=== PATIENT | female | born 1960 | race Caucasian/White ===

== ENCOUNTER 2023-06-21 06:17 | Emergency (ER) | payer BC, SELFPAY ==
[2023-06-21 06:26] VITALS: BP 136/94
[2023-06-21 07:03] LABS: % Basophils 0.8 % (0-2); % Eosinophils 1.3 % (0-6); % Immature Granulocytes 0.2 % (0-0.5); % Lymphocytes 29.8 % (20.5-51.1); % Monocytes 10.9 % (1.7-9.3); Absolute Basophils 0.1 10^3/uL (0-0.2); Absolute Eosinophils 0.1 10^3/uL (0-0.7); Absolute Lymphocytes 1.9 10^3/uL (1.2-3.4); Absolute Monocytes 0.7 10^3/uL (0.1-0.6); Absolute Neutrophils 3.6 10^3/uL (1.4-6.5); Hematocrit 42.6 % (37.0-47.0); Hemoglobin 14.4 g/dL (12.0-16.0); Mean Corp Hgb Conc. 33.8 g/dL (33.0-37.0); Mean Corpuscular Hgb 28.7 pg (27.0-31.0); Mean Corpuscular Volume 84.9 fL (81.0-99.0); Mean Platelet Volume 9.2 fL (7.4-10.4); Nucleated Red Blood Cells % 0 %; Platelet Count 294 10^3/uL (130-400); Red Blood Cell Count 5.02 10^6/uL (4.20-5.40); Red Cell Dist. Width 13.4 % (11.5-14.5); White Blood Cell Count 6.2 10^3/uL (4.8-10.8)
[2023-06-21 07:17] LABS: ALT (SGPT) 19 U/L (0-35); AST (SGOT) 19 U/L (14-36); Alkaline Phosphatase 88 U/L (38-126); Blood Urea Nitrogen 24 mg/dl (7-17); Calcium 9.3 mg/dl (8.4-10.2); Carbon Dioxide 27 mmol/L (22-30); Chloride 104 mmol/L (98-107); Glucose 101 mg/dl (70-99); Potassium 4.4 mmol/L (3.5-5.1); Sodium 138 mmol/L (135-145); Total Bilirubin 0.6 mg/dl (0.2-1.3); Total Protein 6.7 g/dl (6.3-8.2); eGFR > 60.00
[2023-06-21 07:27] LABS: Troponin I < 0.012 ng/ml
[2023-06-21 07:47] LABS: TSH Reflex To Free T4 4.49 uIU/ml (0.47-4.68)
--- NOTE | 2023-06-21 07:56 | ED.GENMED ---
History of Present Illness
General
Chief Complaint: Heart Rate Problem
Source: patient
Exam Limitations: none
Time Seen by Provider: 06/21/23 07:55
Nursing documentation reviewed up to this point in time: agreed with
Travel History
Have you had any contact with someone who has COVID-19?: No
Do you have any symptoms of coronavirus? Fever > 100 degrees, chills, cough, shortness of breath, sore throat, loss of taste or smell, muscle aches, or headache?: No
History of Present Illness
History of Present Illness:
63-year-old female with history of SVT, hypothyroid presents stating she awakened at 5:30 a.m. with 'whizzing feeling in my head,' put her pulse oximeter on and her heart rate was 145-150 for about 10 minutes with palpitations and 'whiz in my head.'
Denies CP, SOB, n/v. Called her son to bring her here, on arrival her pulse ox read HR 108-110 and has had no further episodes.
Had SVT September 2022, f/u with cardiology Dr. Wiseman and reports had unremarkable echo, ekg, Holter.
No recent illness or exposures. No recent travel
Past History
Past History
ED Past Medical History: Hypothyroidism and Other (COVID infection, SVT September 2022)
ED Past Surgical History: Orthopedic
Social History
Tobacco: Non-smoker
Alcohol: Occasional
Personal:
Living: with family
Employment: Employed
Review of Systems
Review of Systems
Allergies reviewed?: Yes
All Other Systems: ROS reviewed and negative except as documented in HPI and ROS
Constitutional: Denies fever or fatigue
Respiratory: Denies trouble breathing
Cardiac: Reports palpitations; Denies chest pain, diaphoresis or syncope
ABD/GI: Denies abdominal pain, nausea or vomiting
: Denies dysuria or difficulty voiding
Musculoskeletal: Reports no symptoms
Skin: Reports no symptoms
Neurological: Reports no symptoms
Phy Exam
Physical Exam
Physical Exam:
GENERAL: No acute distress. A&Ox3.
CONSTITUTIONAL: Afebrile.
EYES: clear, conjunctivae normal
ENMT: moist mucus membranes, Pharynx nl
RESPIRATORY: Regular respirations, nonlabored, lungs clear.
CARDIOVASCULAR: Regular rate and rhythm, no murmurs, no rubs. HR
GI: Soft, nontender, normal BS
MUSCULOSKELETAL: Moves with ease. Well perfused.
SKIN: Warm, dry, pink
PSYCH: Normal mood and affect. Well kept, interactive and appropriate
NEUROLOGIC: Awake, alert and oriented. No focal neurological deficits
Course
Orders/Labs/Results
Orders:
Orders
06/21/23 06:28
Electrocardiogram (*1) Urgent
Reason for Study: Palpitations
06/21/23 06:29
EKG- Treatment ONCE
06/21/23 06:45
Complete Blood Count/With Diff Urgent
Comprehensive Metabolic Panel Urgent
TSH Reflex To Free T4 Urgent
Troponin I Urgent
06/21/23 07:56
0.9% Sodium Chloride 1000 ml [Nss] 1,000 ml IV BOLUS
06/21/23 08:[address] Non Medication Order As Directed
Physician Order: monitor
Above order entered?: Yes
Abnormal Lab Results
06/21/23
06:45
Absolute Monos (auto) 0.7 H 10^3/uL
(0.1-0.6)
Monocytes % 10.9 H %
(1.7-9.3)
BUN 24 H mg/dl
(7-17)
Glucose 101 H mg/dl
(70-99)
06/21/23 06:45
06/21/23 06:45
Vital Signs
Initial and Last Documented VS:
Initial Vital Signs
Temp Pulse Resp BP Pulse Ox
98.0 F 110 16 136/94 97
06/21/23 06:26 06/21/23 06:26 06/21/23 06:26 06/21/23 06:26 06/21/23 06:26
Last Documented Vital Signs
Temp Pulse Resp BP Pulse Ox
98.0 F 86 20 121/77 96
06/21/23 06:26 06/21/23 10:00 06/21/23 10:00 06/21/23 10:00 06/21/23 10:00
MDM/Problems Addressed
Differential Diagnosis Includes:
SVT, palpitations
MDM/Problems Addressed:
63-year-old female with history of SVT, hypothyroid presents stating she awakened at 5:30 a.m. with 'whizzing feeling in my head,' put her pulse oximeter on and her heart rate was 145-150 for about 10 minutes with palpitations and 'whiz in my head.'
Denies CP, SOB, n/v. Called her son to bring her here, on arrival her pulse ox read HR 108-110 and has had no further episodes.
Had SVT September 2022, f/u with cardiology Dr. Wiseman and reports had unremarkable echo, ekg, Holter.
No recent illness or exposures. No recent travel
EKG: NSR
8:45 AM
CBC normal
CMP unremarkable save for BUN of 24 consistent with dehydration, IV fluids ordered
Troponin normal
TSH within normal limits
Monitoring during entire stay, no SVT or significant tachycardia
Consulted Cardiology Dr. Wiseman who agrees with Toprol and keep scheduled f/u appt in June
Pt comfortable with this plan
*EKG
EKG Intrepretation Date: 06/21/23
Interpretation: normal
Rate: normal
Rhythm: sinus
[place]: normal axis
Interval: normal interval
QRS Pattern: normal QRS
Ischemia: no ischemia
*Critical Care Note
Total Time (30-74mins, 75-104mins- exclusive of procedures): Not Applicable
ED Attending Note
-
Portions of this chart may have been created with voice recognition software.� Occasional wrong word or��sound alike� substitutions may have occurred due to the inherent limitations of voice recognition software.
Discharge Plan
Departure
Patient Disposition: Home (Routine Discharge)
Date of Disposition: 06/21/23
Time of Disposition: 09:55
Patient with high blood pressure during this ER visit?: Yes
Condition: Good
Discharge Problem:
Rapid heart rate
Instructions: Supraventricular tachycardia (SVT), BLOOD PRESSURE
Prescriptions:
New
metoprolol succinate [Toprol XL] 25 mg tablet extended release 24 hr
25 mg PO DAILY Qty: 30 0RF
No Action
levothyroxine [Levoxyl] 100 MCG tablet
100 mcg PO Daily
Referrals:
Juanpablo Mathis MD [Family Provider] -
Reno Wiseman MD [Active] - Keep scheduled appt
Activity Restrictions/Additional Instructions:
As we discussed, I sent a prescription to your pharmacy for the Toprol.
Keep appointment scheduled for Dr. Wiseman in June or July.
Try the Valsalva maneuvers we discussed if you have a rapid heart rate again.
If the heart rate does not improve within 15 minutes, if it is associated with feeling faint, chest pain, nausea/vomiting or feeling sicker in any way, return here immediately.
Interventions
Interventions:
*Risk Screen - Suicide Last Done: 06/21/23 06:26
*General Assessment Last Done: 06/21/23 08:57
*Neglect/Abuse Screening Last Done: 06/21/23 06:26
ED- Fall Risk Assessment Last Done: 06/21/23 08:57
*ED COVID-19 Vaccine History Last Done: 06/21/23 06:26
*Nursing Disposition Last Done: 06/21/23 10:21
ED- Cardiac Assessment Last Done: 06/21/23 08:57
ED- Pulmonary Assessment Last Done: 06/21/23 08:57
Discharge Date and Time
Discharge Date/Time: 06/21/23 10:22
Print Language: PASHTO
[2023-06-21 08:57] VITALS: BMI 49.7
[2023-06-21 08:58] VITALS: BP 142/98
[2023-06-21 09:00] VITALS: BP 140/94
[2023-06-21] MEDS: NSS 1000 IV (09:11)
[2023-06-21 10:00] VITALS: BP 121/77
== END 2023-06-21 10:22 | disposition home or self-care (01) ==
LOC: EMR 06:17
PROVIDERS: Student in an Organized Health Care Education/Training Program; EMERGENCY PHYSICIAN Emergency Medicine; FAMILY PHYSICIAN Internal Medicine Geriatric Medicine
DX: I47.10 Supraventricular tachycardia, unspecified (principal); R03.0 Elevated blood-pressure reading, without diagnosis of hypertension; E86.0 Dehydration; E03.9 Hypothyroidism, unspecified; M19.90 Unspecified osteoarthritis, unspecified site; Z86.16 Personal history of COVID-19
CPT/HCPCS: 99284; 96360; 80053; 84443; 84484; 85025; 93005

== ENCOUNTER → 2023-06-28 16:10 | Outpatient (REF) | payer BC, SELFPAY | LOC: WDC 16:10 | PROVIDERS: ATTENDING PHYSICIAN Internal Medicine Geriatric Medicine | DX: Z12.31 Encounter for screening mammogram for malignant neoplasm of breast (principal) | CPT/HCPCS: 77063; 77067 ==

== ENCOUNTER 2024-06-16 23:34 | Emergency (ER) | payer BC, SELFPAY ==
[2024-06-16 23:55] VITALS: BP 180/101
[2024-06-17 00:32] VITALS: BP 138/83
--- NOTE | 2024-06-17 00:41 | ED.GENMED ---
History of Present Illness
General
Chief Complaint: Heart Rate Problem
Source: patient
Exam Limitations: none
Time Seen by Provider: 06/17/24 00:19
History of Present Illness
History of Present Illness:
See MDM
Past History
Past History
ED Past Medical History: Hypothyroidism and Other (COVID infection, SVT September 2022)
ED Past Surgical History: Orthopedic
Social History
Tobacco: Non-smoker
Alcohol: Occasional
Personal:
Living: with family
Employment: Employed
Phy Exam
Physical Exam
Physical Exam:
See MDM
Course
Orders/Labs/Results
Orders:
Orders
06/17/24 00:02
Electrocardiogram (*1) Urgent
Reason for Study: Bradycardia / Tachycardia
EKG- Treatment ONCE
06/17/24 00:38
Complete Blood Count/With Diff Urgent
Comprehensive Metabolic Panel Urgent
Free T4 Urgent
Magnesium Urgent
TSH Reflex To Free T4 Urgent
Troponin I Urgent
Abnormal Lab Results
06/17/24
00:38
WBC 10.9 H 10^3/uL
(4.8-10.8)
Abs Immat Gran (auto) 0.1 H 10^3/uL
(0-0.05)
Absolute Neuts (auto) 7.7 H 10^3/uL
(1.4-6.5)
Absolute Monos (auto) 1.2 H 10^3/uL
(0.1-0.6)
Immature Gran % 1.2 H %
(0-0.5)
Lymphocytes % 15.6 L %
(20.5-51.1)
Monocytes % 11.2 H %
(1.7-9.3)
BUN 28 H mg/dl
(7-17)
Glucose 111 H mg/dl
(70-99)
TSH (Reflex) 6.60 H uIU/ml
(0.47-4.68)
06/17/24 00:38
06/17/24 00:38
Vital Signs
Initial and Last Documented VS:
Initial Vital Signs
Temp Pulse Resp BP Pulse Ox
98.3 F 106 16 180/101 99
06/16/24 23:55 06/16/24 23:55 06/16/24 23:55 06/16/24 23:55 06/16/24 23:55
Last Documented Vital Signs
Temp Pulse Resp BP Pulse Ox
98.3 F 88 24 138/83 93
06/16/24 23:55 06/17/24 01:45 06/17/24 01:45 06/17/24 00:32 06/17/24 01:45
MDM/Problems Addressed
Differential Diagnosis Includes:
HPI and MDM Narrative:
64-year-old female presenting with resolved palpitations and tachycardia. This is an ongoing issue. She has been seen by cardiology in the past and is currently being followed up with Dr. Alexander. They are working on her and further testing to get
to the bottom of her tachycardic episodes. It appears they have at least narrow down that it is sinus tachycardia
Patient noted the symptoms when she was falling asleep. She denies being anxious. She had just taken her metoprolol at 7 PM, few hours before this happened. On arrival, all symptoms appear to have resolved
Physical exam
General: Well appearing and non-toxic
HEENT: protecting airway
Neck: appears supple
CV: No evidence of cyanosis. Regular rate and rhythm
Resp: No accessory muscle use
Abd: Non-distended
Extremities: No deformities. No leg edema
Neuro: alert
Psych: Normal affect
Skin: Intact
Problems Addressed including Acute and Chronic Conditions affecting care:
1. Intermittent tachycardia
Acuity: acute
Prognosis: stable
Details: Patient currently in sinus rhythm. She is being worked up by cardiology and they started metoprolol for symptom control.
Updates
Electrolytes and troponin negative. T4 levels normal. Discussed continuing the workup with cardiology as an outpatient. Patient feels comfortable going
Differential Diagnosis (but not limited to): Inappropriate sinus tachycardia, SVT, A-fib, pheochromocytoma
Testing considered: Chest x-ray
Drug therapy (if applicable): OTC meds, please see d/c instruction regarding Rx drugs
Amount and/or Complexity of Data Reviewed
Clinical info obtained from: Patient
External data reviewed: N/A
Labs I independently reviewed (but not limited to): T4 normal, troponin normal
Radiology: N/A
Pulse Ox: not hypoxic
EKG independently reviewed: Sinus rhythm, normal axis, no STEMI
Livestock Inspector: Sinus rhythm
Critical Care: N/A
Risk of Complication:
Social Determinants of health: Good social support
Discussed with other providers: N/A
Escalation of Care includes Admit/Obs: After being observed in the Emergency Department, pt stable for discharge.
Occasional wrong word or 'sound a like' substitutions may have occurred due to the inherent limitations of voice recognition software. Read the chart carefully and recognize, using context, where substitutions have occurred.
*Critical Care Note
Total Time (30-74mins, 75-104mins- exclusive of procedures): Not Applicable
ED Attending Note
-
Portions of this chart may have been created with voice recognition software.� Occasional wrong word or��sound alike� substitutions may have occurred due to the inherent limitations of voice recognition software.
Discharge Plan
Departure
Patient Disposition: Home (Routine Discharge)
Date of Disposition: 06/17/24
Time of Disposition: 02:26
Patient with high blood pressure during this ER visit?: No
Discharge Problem:
Heart palpitations
Instructions: Palpitations (DC)
Prescriptions:
No Action
levothyroxine [Levoxyl] 100 MCG tablet
100 mcg PO Daily
metoprolol succinate [Toprol XL] 25 mg tablet extended release 24 hr
25 mg PO DAILY Qty: 30 0RF
Referrals:
Juanpablo Mathis MD [Family Provider] -
Activity Restrictions/Additional Instructions:
Please return for any worsening symptoms.
You may return at any time if you have further concerns.
Please follow up with your doctor at the first available appointment, preferably this week. As we discussed, your workup has been negative. Please talk to your doctor about alternative rare causes of tachycardia such as pheochromocytoma.
If you have the sensation of a fast heart rate again, you may benefit from a dose of Benadryl. If heart rate is still fast, I would take a second dose of metoprolol. If symptoms still persist, I would recommend returning to the emergency
department.
Thank you for choosing [facility].
Interventions
Interventions:
*Risk Screen - Suicide Last Done: 06/16/24 23:55
*Neglect/Abuse Screening Last Done: 06/16/24 23:55
*ED- Fall Risk Assessment Last Done: 06/16/24 23:55
*ED COVID-19 Vaccine History Last Done: 06/16/24 23:55
ED- Cardiac Assessment Last Done: 06/17/24 00:48
ED- Pulmonary Assessment Last Done: 06/17/24 00:48
Discharge Date and Time
Print Language: CANADIAN
[2024-06-17 01:03] LABS: ALT (SGPT) 19 U/L (0-35); AST (SGOT) 18 U/L (14-36); Albumin 4.4 g/dl (3.5-5.0); Alkaline Phosphatase 104 U/L (38-126); Blood Urea Nitrogen 28 mg/dl (7-17); Calcium 9.3 mg/dl (8.4-10.2); Carbon Dioxide 24 mmol/L (22-30); Chloride 107 mmol/L (98-107); Glucose 111 mg/dl (70-99); Potassium 4.1 mmol/L (3.5-5.1); Sodium 141 mmol/L (135-145); Total Bilirubin 0.5 mg/dl (0.2-1.3); Total Protein 7.1 g/dl (6.3-8.2); eGFR > 60.00
[2024-06-17 01:09] LABS: % Basophils 0.6 % (0-2); % Eosinophils 0.4 % (0-6); % Immature Granulocytes 1.2 % (0-0.5); % Lymphocytes 15.6 % (20.5-51.1); % Monocytes 11.2 % (1.7-9.3); Absolute Basophils 0.1 10^3/uL (0-0.2); Absolute Immature Granulocytes 0.1 10^3/uL (0-0.05); Absolute Lymphocytes 1.7 10^3/uL (1.2-3.4); Absolute Monocytes 1.2 10^3/uL (0.1-0.6); Absolute Neutrophils 7.7 10^3/uL (1.4-6.5); Hematocrit 42.4 % (37.0-47.0); Hemoglobin 14.3 g/dL (12.0-16.0); Mean Corp Hgb Conc. 33.7 g/dL (33.0-37.0); Mean Corpuscular Hgb 28.5 pg (27.0-31.0); Mean Corpuscular Volume 84.6 fL (81.0-99.0); Mean Platelet Volume 9.5 fL (7.4-10.4); Nucleated Red Blood Cells % 0 %; Platelet Count 293 10^3/uL (130-400); Red Blood Cell Count 5.01 10^6/uL (4.20-5.40); Red Cell Dist. Width 13.3 % (11.5-14.5); White Blood Cell Count 10.9 10^3/uL (4.8-10.8)
[2024-06-17 01:14] LABS: Troponin I < 0.012 ng/ml
[2024-06-17 02:03] LABS: Free T4 1.47 ng/dl (0.78-2.19)
[2024-06-17 02:19] VITALS: BP 107/73
== END 2024-06-17 02:57 | disposition home or self-care (01) ==
LOC: EMR 23:34
PROVIDERS: Student in an Organized Health Care Education/Training Program; EMERGENCY PHYSICIAN Student in an Organized Health Care Education/Training Program; FAMILY PHYSICIAN Internal Medicine Geriatric Medicine; REFERRING PHYSICIAN Internal Medicine Cardiovascular Disease
DX: R00.2 Palpitations (principal); E03.9 Hypothyroidism, unspecified; Z86.16 Personal history of COVID-19
CPT/HCPCS: 99283; 80053; 83735; 84439; 84443; 84484; 85025; 93005

== ENCOUNTER → 2024-06-23 07:47 | Outpatient (REF) | payer BC, SELFPAY | LOC: PET 07:47 | PROVIDERS: ATTENDING PHYSICIAN Internal Medicine Cardiovascular Disease | DX: R06.09 Other forms of dyspnea (principal); R26.89 Other abnormalities of gait and mobility | CPT/HCPCS: 78431; 93306; A9555; J2785 ==

== ENCOUNTER → 2024-06-23 09:11 | Outpatient (REF) | payer BC, SELFPAY | LOC: RCS 09:11 | PROVIDERS: ATTENDING PHYSICIAN Internal Medicine Cardiovascular Disease; FAMILY PHYSICIAN Internal Medicine Geriatric Medicine | DX: R00.0 Tachycardia, unspecified (principal); R06.09 Other forms of dyspnea | CPT/HCPCS: 93306 ==

== ENCOUNTER → 2024-06-24 10:28 | Outpatient (REF) | payer BC, SELFPAY ==
[2024-06-24 11:20] LABS: % Basophils 0.7 % (0-2); % Eosinophils 0.4 % (0-6); % Immature Granulocytes 0.5 % (0-0.5); % Lymphocytes 22.1 % (20.5-51.1); % Monocytes 10.5 % (1.7-9.3); % Neutrophils 65.8 % (42.2-75.2); Absolute Basophils 0.1 10^3/uL (0-0.2); Absolute Lymphocytes 1.7 10^3/uL (1.2-3.4); Absolute Monocytes 0.8 10^3/uL (0.1-0.6); Hematocrit 46.1 % (37.0-47.0); Hemoglobin 15.1 g/dL (12.0-16.0); Mean Corp Hgb Conc. 32.8 g/dL (33.0-37.0); Mean Corpuscular Hgb 28.4 pg (27.0-31.0); Mean Corpuscular Volume 86.8 fL (81.0-99.0); Mean Platelet Volume 9.7 fL (7.4-10.4); Nucleated Red Blood Cells % 0 %; Platelet Count 317 10^3/uL (130-400); Red Blood Cell Count 5.31 10^6/uL (4.20-5.40); Red Cell Dist. Width 13.5 % (11.5-14.5); White Blood Cell Count 7.6 10^3/uL (4.8-10.8)
[2024-06-24 12:20] LABS: Urine Albumin 1+ (Neg - Trace); Urine Bilirubin Negative (Negative); Urine Character Clear (Clear); Urine Color Yellow; Urine Glucose Negative (Negative); Urine Ketone Negative (Negative); Urine Leukocyte 1+ (Negative); Urine Nitrite Positive (Negative); Urine Occult Blood 2+ (Negative); Urine Urobilinogen Negative (Neg - 1+)
[2024-06-24 12:51] LABS: Urine Bacteria Many (Negative)
[2024-06-24 12:52] LABS: Urine Red Blood Cell 0-2 /HPF (0-2); Urine Squamous Cell >30 /LPF (Few)
[2024-06-24 13:05] LABS: ALT (SGPT) 18 U/L (0-35); AST (SGOT) 16 U/L (14-36); Alkaline Phosphatase 103 U/L (38-126); Blood Urea Nitrogen 18 mg/dl (7-17); Calcium 9.1 mg/dl (8.4-10.2); Carbon Dioxide 29 mmol/L (22-30); Chloride 106 mmol/L (98-107); Glucose 87 mg/dl (70-99); HDL Cholesterol 57 mg/dl; LDL Cholesterol, Calculated 144 mg/dl; Potassium 4.7 mmol/L (3.5-5.1); Sodium 142 mmol/L (135-145); Total Bilirubin 0.8 mg/dl (0.2-1.3); Total Cholesterol 223 mg/dl (50-199); Total Protein 6.9 g/dl (6.3-8.2); Triglyceride 111 mg/dl (10-149); Very Low Density Lipoprotein 22 mg/dl (0-30); eGFR > 60.00
[2024-06-24 13:23] LABS: Vitamin D, 25-OH*** 39.9 ng/mL (30-80)
[2024-06-24 13:36] LABS: TSH 3.27 uIU/ml (0.47-4.68)
== END ==
LOC: REG 10:28
PROVIDERS: ATTENDING PHYSICIAN Internal Medicine Cardiovascular Disease; FAMILY PHYSICIAN Internal Medicine Geriatric Medicine; OTHER PHYSICIAN Internal Medicine Endocrinology, Diabetes & Metabolism
DX: R00.0 Tachycardia, unspecified (principal); E03.9 Hypothyroidism, unspecified; E66.01 Morbid (severe) obesity due to excess calories; Z68.43 Body mass index [BMI] 50.0-59.9, adult; E66.813 Obesity, class 3; R06.09 Other forms of dyspnea; R26.89 Other abnormalities of gait and mobility; I10 Essential (primary) hypertension; R05.9 Cough, unspecified; E78.5 Hyperlipidemia, unspecified; Z13.89 Encounter for screening for other disorder
CPT/HCPCS: 36415; 80053; 80061; 81003; 81015; 82306; 84443; 85025

== ENCOUNTER 2024-07-04 03:11 | Emergency (ER) | payer BC, SELFPAY ==
[2024-07-04 03:20] VITALS: BP 161/101
[2024-07-04 03:47] VITALS: BP 122/73
[2024-07-04 03:48] VITALS: BMI 48.3
[2024-07-04 04:00] VITALS: BP 113/69
--- NOTE | 2024-07-04 04:56 | ED.GENMED ---
History of Present Illness
General
Chief Complaint: Heart Rate Problem
Source: patient, previous radiology exam (Unremarkable echocardiogram June 23, 2024; unremarkable PET PET/CT myocardial perfusion June 23.) and previous hospital records (ED visit June 17 for very similar complaint.)
Exam Limitations: none
Time Seen by Provider: 07/04/24 04:31
Nursing documentation reviewed up to this point in time: agreed with
History of Present Illness
History of Present Illness:
This is a 64-year-old woman with history of hypertension, hypothyroidism has had ongoing issues with palpitations mostly at nighttime waking her from sleep. Follows with cardiology, Dr. Aelxander, and thus far has undergone unremarkable
echocardiogram, unremarkable nuclear PET/myocardial imaging. Reportedly underwent Holter monitor showing sporadic sinus tachycardia. Maintained on metoprolol 25 mg in the evening.
She complains of ongoing issues with waking up at nighttime with feeling of palpitations and she is concern for possible sleep apnea. She has been in contact with coal briquette machine operator, Dr. Samano and is planned for an outpatient sleep study. She woke
tonight with similar palpitations and checked her heart rate it was 110-112. Symptoms persisted thus she came to the ED for further evaluation. She denies chest pain, no dizziness nor lightheadedness, no coughing or shortness of breath.
She admits to feeling well during the day, asymptomatic during the day.
Similar complaint during ED visit June 17. Unremarkable ED evaluation, unremarkable laboratory studies. Very minimally elevated TSH with normal free T4.
She admits that she is 'afraid to go to sleep'
Past History
Past History
ED Past Medical History: Hypothyroidism and Other (COVID infection, SVT September 2022)
ED Past Surgical History: Orthopedic
Social History
Tobacco: Non-smoker
Alcohol: Occasional
Drug: None
Personal:
Living: with family
Employment: Employed
Family History
Family History: Other (Noncontributory)
Phy Exam
Physical Exam
Physical Exam:
GENERAL: 64-year-old overweight female appears her stated age, bright and alert, pleasant, quite chatty and overall in no acute distress.
EYE: anicteric
NECK: Supple, nontender, no meningismus, no significant adenopathy. No bruit. No palpable tenderness.
ENT: posterior pharynx is clear, oral mucosa is moist. TM clear b/l, nares patent.
CARDIAC: Regular rate and rhythm. no murmur.
LUNGS: Clear breath sounds bilaterally, no acute respiratory distress, no wheezes/rales/rhonchi
ABDOMEN: Soft, nondistended, without focal tenderness
NEUROLOGICAL: Alert and oriented x3, no focal neuro deficits. Gait is steady.
SKIN: Warm and dry, normal color, skin intact. No rash.
MUSCULOSKELETAL: No C/C/E. peripheral pulses are full and equal b/l. No palpable tenderness.
PSYCH: Normal and appropriate interaction.
Course
Orders/Labs/Results
Orders:
Orders
07/04/24 03:13
ECG [Electrocardiogram (*1)] Urgent
Reason for Study: Chest Pain
07/04/24 03:14
EKG- Treatment ONCE
Vital Signs
Initial and Last Documented VS:
Initial Vital Signs
Temp Pulse Resp BP Pulse Ox
98.9 F 97 17 161/101 97
07/04/24 03:20 07/04/24 03:20 07/04/24 03:20 07/04/24 03:20 07/04/24 03:20
Last Documented Vital Signs
Temp Pulse Resp BP Pulse Ox
98.9 F 80 22 113/69 97
07/04/24 03:20 07/04/24 04:45 07/04/24 04:45 07/04/24 04:00 07/04/24 04:45
MDM/Problems Addressed
Differential Diagnosis Includes:
Concern for nocturnal tachyarrhythmia, concern for obstructive sleep apnea.
Recent unremarkable laboratory studies just 2 weeks ago as well as 1-1/2 weeks ago. No indication to repeat.
EKG again shows normal sinus rhythm, normal axis, normal intervals, unchanged from previous.
hall monitor shows normal sinus rhythm without ectopy.
Normal pulse ox.
Recommend follow-up with sealant mixer as well as coal briquette machine operator. Agree with home sleep study which is planned for near future.
Could consider increasing dose of metoprolol but patient is hesitant to do so; recommend she follow-up with her sealant mixer to discuss nocturnal palpitations.
*Pulse Oximetry
Patient hypoxic: no
*EKG
Interpreted by ED Provider?: Yes
Interpretation: normal
Comparison EKG: no changes
Rate: normal
Rhythm: sinus
[place]: normal axis
Interval: normal interval
QRS Pattern: normal QRS
Ischemia: no ischemia
*Learning Center Instructor Interpretation
Rate: normal
Interpretation: normal
Rhythm: sinus
*Critical Care Note
Total Time (30-74mins, 75-104mins- exclusive of procedures): Not Applicable
ED Attending Note
-
Portions of this chart may have been created with voice recognition software.� Occasional wrong word or��sound alike� substitutions may have occurred due to the inherent limitations of voice recognition software.
Discharge Plan
Departure
Patient Disposition: Home (Routine Discharge)
Date of Disposition: 07/04/24
Time of Disposition: 04:58
Patient with high blood pressure during this ER visit?: No
Discharge Problem:
Nocturnal palpitations
Instructions: Palpitations (DC)
Prescriptions:
No Action
levothyroxine [Levoxyl] 100 MCG tablet
100 mcg PO Daily
metoprolol succinate [Toprol XL] 25 mg tablet extended release 24 hr
25 mg PO DAILY Qty: 30 0RF
Referrals:
Scooby Bravo DO [Active] -
Juanpablo Mathis MD [Family Provider] - Call in 1-3 days for appt
Santos Donald MD [Active] - Call in 1-3 days for appt
Interventions
Interventions:
*Risk Screen - Suicide Last Done: 07/04/24 03:20
*General Assessment Last Done: 07/04/24 03:48
*Neglect/Abuse Screening Last Done: 07/04/24 03:20
*ED- Fall Risk Assessment Last Done: 07/04/24 03:48
*ED COVID-19 Vaccine History Last Done: 07/04/24 03:20
*Nursing Disposition Last Done: 07/04/24 05:05
ED- Cardiac Assessment Last Done: 07/04/24 03:48
ED- Pulmonary Assessment Last Done: 07/04/24 03:48
Discharge Date and Time
Discharge Date/Time: 07/04/24 05:05
Print Language: TAJIK
== END 2024-07-04 05:05 | disposition home or self-care (01) ==
LOC: EMR 03:11
PROVIDERS: EMERGENCY PHYSICIAN Emergency Medicine; FAMILY PHYSICIAN Internal Medicine Geriatric Medicine
DX: R00.2 Palpitations (principal); I10 Essential (primary) hypertension; E03.9 Hypothyroidism, unspecified; Z86.16 Personal history of COVID-19
CPT/HCPCS: 99283; 93005

== ENCOUNTER 2024-07-06 11:58 | Emergency (ER) | payer BC, SELFPAY ==
[2024-07-06] VITALS (9 sets, daily range): BP systolic 122–151; BP diastolic 50–113
[2024-07-06 12:25] LABS: % Basophils 0.6 % (0-2); % Eosinophils 0.1 % (0-6); % Immature Granulocytes 0.2 % (0-0.5); % Lymphocytes 20.6 % (20.5-51.1); % Monocytes 8.7 % (1.7-9.3); % Neutrophils 69.8 % (42.2-75.2); Absolute Basophils 0.1 10^3/uL (0-0.2); Absolute Lymphocytes 1.8 10^3/uL (1.2-3.4); Absolute Monocytes 0.8 10^3/uL (0.1-0.6); Hematocrit 46.2 % (37.0-47.0); Hemoglobin 15.5 g/dL (12.0-16.0); Mean Corp Hgb Conc. 33.5 g/dL (33.0-37.0); Mean Corpuscular Hgb 28.5 pg (27.0-31.0); Mean Corpuscular Volume 84.9 fL (81.0-99.0); Mean Platelet Volume 9.3 fL (7.4-10.4); Nucleated Red Blood Cells % 0 %; Platelet Count 318 10^3/uL (130-400); Red Blood Cell Count 5.44 10^6/uL (4.20-5.40); Red Cell Dist. Width 13.2 % (11.5-14.5); White Blood Cell Count 8.6 10^3/uL (4.8-10.8)
[2024-07-06 12:45] LABS: ALT (SGPT) 20 U/L (0-35); AST (SGOT) 19 U/L (14-36); Albumin 4.4 g/dl (3.5-5.0); Alkaline Phosphatase 103 U/L (38-126); Blood Urea Nitrogen 19 mg/dl (7-17); Calcium 9.2 mg/dl (8.4-10.2); Carbon Dioxide 23 mmol/L (22-30); Chloride 104 mmol/L (98-107); Glucose 131 mg/dl (70-99); Sodium 139 mmol/L (135-145); Total Bilirubin 0.8 mg/dl (0.2-1.3); Total Protein 7.2 g/dl (6.3-8.2); eGFR > 60.00
[2024-07-06 12:50] LABS: Troponin I < 0.012 ng/ml
--- NOTE | 2024-07-06 15:35 | ED.GENMED ---
History of Present Illness
General
Chief Complaint: Dizziness
Source: patient
Exam Limitations: none
Time Seen by Provider: 07/06/24 15:04
History of Present Illness
History of Present Illness:
Patient with ongoing issues of tachycardia. Today she felt like her heart was racing. This was followed by lightheadedness. It was not syncopal-like. However she also denies that it was vertigo or disequilibrium. No diaphoresis no chest pain or
shortness of breath. She complains of some quivering behind her right ear at times but it does not coincide with her heart rate. She denies severe headaches or neurologic symptoms or other complaints tachycardias been an ongoing issue and has been
worked up by cardiology.
Past History
Past History
ED Past Medical History: Hypothyroidism and Other (COVID infection, SVT September 2022)
ED Past Surgical History: Orthopedic
Social History
Tobacco: Non-smoker
Alcohol: Occasional
Drug: None
Personal:
Living: with family
Employment: Employed
Family History
Family History: Other (Noncontributory)
Review of Systems
Review of Systems
All Other Systems: Not applicable
Constitutional: Denies fever or chills
Cardiac: Denies chest pain
Phy Exam
Physical Exam
Physical Exam:
GENERAL: Alert and oriented in no apparent distress
EYE: Orbits normal.
NECK: Supple, no significant adenopathy.
ENT: Pharynx without erythema
CARDIAC: Mildly tachycardic and regular no murmur
LUNGS: Clear breath sounds,normal
ABDOMEN: Soft, without focal tenderness or distention
NEUROLOGICAL: Alert and oriented , grossly non-focal
SKIN: Warm and dry, no rash or lesion, no discoloration, skin intact.
MUSCULOSKELETAL: No edema,no deformity.Good color
PSYCH: Normal and appropriate interaction.
Course
Orders/Labs/Results
Orders:
Orders
07/06/24 12:00
Electrocardiogram (*1) Urgent
Reason for Study: Vertigo / Dizzy
07/06/24 12:01
EKG- Treatment ONCE
07/06/24 12:13
Complete Blood Count/With Diff Urgent
Comprehensive Metabolic Panel Urgent
TSH Reflex To Free T4 Urgent
Comment: TSH REFLEX ADDED ON BY FLOOR 3:20PM 07-06-24
Troponin I Urgent
07/06/24 15:19
Add On- LAB Urgent
Tests Added?: tsh reflex t4
07/06/24 15:20
CT Head W/o Iv Contrast Urgent
Comment:
Reason For Exam: Dizziness
07/06/24 15:29
D-Dimer Urgent
07/06/24 18:54
Dexamethasone Sod Phosphate [Decadron] 6 mg IV NOW STA
Abnormal Lab Results
07/06/24
12:13
RBC 5.44 H 10^6/uL
(4.20-5.40)
Absolute Monos (auto) 0.8 H 10^3/uL
(0.1-0.6)
BUN 19 H mg/dl
(7-17)
Glucose 131 H mg/dl
(70-99)
07/06/24 12:13
07/06/24 12:13
Vital Signs
Initial and Last Documented VS:
Initial Vital Signs
Temp Pulse Resp BP Pulse Ox
98.4 F 122 18 144/90 98
07/06/24 12:04 07/06/24 12:04 07/06/24 12:04 07/06/24 12:04 07/06/24 12:04
Last Documented Vital Signs
Temp Pulse Resp BP Pulse Ox
98.4 F 106 20 133/50 95
07/06/24 12:04 07/06/24 21:15 07/06/24 21:20 07/06/24 20:00 07/06/24 21:15
MDM/Problems Addressed
Differential Diagnosis Includes:
Patient started with tachycardic symptoms followed by lightheadedness. Not describing vertigo. Specifically says she had no gait issues or equilibrium issues. No pulsatile feeling in the head. She did have some quivering behind her right ear
that she has had intermittently. She feels she may have a long COVID. Medically stable except for mild sinus tachycardia. Highly doubt PE but D-dimer will be done. Check thyroid check electrolytes. Neurologic exam normal.
*Pulse Oximetry
Patient hypoxic: no
*EKG
Interpreted by ED Provider?: Yes
Interpretation: abnormal
Comparison EKG: changes noted
Heart Rate: 111
Rate: tachycardiac
Rhythm: sinus
[place]: normal axis
Interval: normal interval
QRS Pattern: normal QRS and left vent hypertrophy
Ischemia: non-specific ST changes
*Critical Care Note
Total Time (30-74mins, 75-104mins- exclusive of procedures): 40
Data Reviewed
Review of Other/Old Records Reveals: Labs, Records, Radiology Studies, Testing and Other (Echo)
Update Note
Update Note:
2139... Patient has been rechecked multiple times and has remained stable. Transport at 1130 tonight
ED Attending Note
-
Portions of this chart may have been created with voice recognition software.� Occasional wrong word or��sound alike� substitutions may have occurred due to the inherent limitations of voice recognition software.
Discharge Plan
Departure
Patient Disposition: Acute Care Hospital
Date of Disposition: 07/06/24
Time of Disposition: 20:07
Discharge Problem:
Right meningioma with edema/mass effect, Sinus tachycardia
Prescriptions:
No Action
levothyroxine [Levoxyl] 100 MCG tablet
100 mcg PO Daily
metoprolol succinate [Toprol XL] 25 mg tablet extended release 24 hr
25 mg PO DAILY Qty: 30 0RF
Referrals:
Juanpablo Mathis MD [Family Provider] -
Hospital Transfer
Other hospital: [facility]
I certify that the patient requires transfer: Yes
Discussed case with accepting physician: Rosita
Reason for transfer: higher level of care
Interventions
Interventions:
*Risk Screen - Suicide Last Done: 07/06/24 12:04
*General Assessment Last Done: 07/06/24 15:07
*Neglect/Abuse Screening Last Done: 07/06/24 12:04
*ED- Fall Risk Assessment Last Done: 07/06/24 15:06
ED- Neurological Assessment Last Done: 07/06/24 15:06
ED- Cardiac Assessment Last Done: 07/06/24 15:06
ED Swallowing Screen Last Done: 07/06/24 20:20
Discharge Date and Time
Print Language: HONDURAN
[2024-07-06 15:59] LABS: D-Dimer 0.38 ug/mlFEU (0.00-0.50)
[2024-07-06 17:41] LABS: TSH Reflex To Free T4 2.48 uIU/ml (0.47-4.68)
[2024-07-06] MEDS: DECADRON 6 MG IV (19:32)
[2024-07-07] VITALS: BP 128/94
== END 2024-07-07 00:30 | disposition short-term general hospital (02) ==
LOC: EMR 11:58
PROVIDERS: Student in an Organized Health Care Education/Training Program; EMERGENCY PHYSICIAN Emergency Medicine; FAMILY PHYSICIAN Internal Medicine Geriatric Medicine
DX: D32.0 Benign neoplasm of cerebral meninges (principal); G93.6 Cerebral edema; R00.0 Tachycardia, unspecified; E03.9 Hypothyroidism, unspecified; Z86.16 Personal history of COVID-19
CPT/HCPCS: 96374; 99291; 70450; 80053; 84443; 84484; 85025; 85379; 93005

== ENCOUNTER 2024-07-18 12:37 | Inpatient (IN) | payer BC, SELFPAY ==
[2024-07-18] VITALS (15 sets, daily range): BP systolic 82–131; BP diastolic 54–85; BMI 47.9; BMI 46.8
--- NOTE | 2024-07-18 04:41 | ED.GENMED ---
History of Present Illness
<Pio Mckeon MD - Last Filed: 07/18/24 13:53>
General
Chief Complaint: Chest Pain
Source: patient
Exam Limitations: none
Time Seen by Provider: 07/18/24 04:36
Nursing documentation reviewed up to this point in time: agreed with
History of Present Illness
History of Present Illness:
Patient status post meningioma resection at [facility] 10 days ago, presents to ED after waking up this morning with 'twinge' in the middle of chest, lasting 'seconds', with spontaneous resolution. Denies associated
shortness of breath. Denies nausea or vomiting. Denies fever. Denies trauma. Denies coughing. Patient states that she has had similar symptoms in the recent days, with spontaneous resolution. Patient's cardiac history includes sinus
tachycardia, for which she is taking metoprolol. Patient reports having received normal stress echocardiogram recently due to sinus tachycardia
Past History
<Pio Mckeon MD - Last Filed: 07/18/24 13:53>
Past History
ED Past Medical History: Hypothyroidism and Other (COVID infection, SVT September 2022)
ED Past Surgical History: Orthopedic
Social History
Tobacco: Non-smoker
Alcohol: Occasional
Drug: None
Personal:
Living: with family
Employment: Employed
Family History
Family History: Other (Noncontributory)
Review of Systems
<Pio Mckeon MD - Last Filed: 07/18/24 13:53>
Review of Systems
Allergies reviewed?: Yes
All Other Systems: ROS reviewed and negative except as documented in HPI and ROS
Constitutional: Reports no symptoms
Respiratory: Reports no symptoms
Cardiac: Reports chest pain
ABD/GI: Reports no symptoms
Musculoskeletal: Reports no symptoms
Skin: Reports no symptoms
Neurological: Reports no symptoms
Phy Exam
<Pio Mckeon MD - Last Filed: 07/18/24 13:53>
Physical Exam
Physical Exam:
Physical Exam
General: no apparent distress, not acutely ill. afebrile
Head: nc/at. eomi
Neck: supple. normal range of motion.
Heart: s1/s2 regular rate and rhythm, no murmur.
Lungs: no acute respiratory distress. clear bilaterally. chest wall nontender to palpation
Abdomen: normal bowel sounds. not tender.
Neuro: alert and oriented x 3. no focal neurological deficits
Skin: no rash
Psychiatric: well kept. interactive and cooperative
Extremities: no edema. no calf tenderness
Scores
<Pio Mckeon MD - Last Filed: 07/18/24 13:53>
Heart Score for Chest Pain Patients
STEMI patient?: Not applicable
Course
<Pio Mckeon MD - Last Filed: 07/18/24 13:53>
Orders/Labs/Results
Orders:
Orders
07/18/24 03:51
EKG [Electrocardiogram (*1)] Urgent
Reason for Study: Chest Pain
EKG- Treatment ONCE
07/18/24 05:02
Basic Metabolic Panel Urgent
Complete Blood Count/No Diff Urgent
D-Dimer Urgent
Magnesium Urgent
Troponin I Urgent
07/18/24 06:05
CT Chest PE Study Urgent
Comment:
Reason For Exam: chest pain w elevated d-dimer
07/18/24 08:50
CT Head W/o Iv Contrast Urgent
Comment:
Reason For Exam: post op from meningioma removal. r/o hemorrhage
07/18/24 11:54
Apixaban [Eliquis] 10 mg PO NOW STA
07/18/24 12:23
Admit/Transfer Patient As Directed
Co-Sign Provider:
Level of Care: Inpatient admission
Assign to:: IMU- Intermediate Care
Physician / Group: hospitalist
Diagnosis: PE
Reason for Hospitalization: PE
Expected length of stay greater than two midnights?: Yes
ELOS- Estimated Length of Stay in days: 3
I certify the patient meets the requirements for IP care: Yes
PRN Pain Medication Management As Directed
May give lesser potent ordered pain med per pt: Yes
preference::
Protocol:: Medication orders for pain may be administered in a
manner that supports deferring to patient preference
when the pt is:
- Requesting an ordered lesser potent pain medication.
Least to most potent pain medications are defined
as: acetaminophen < NSAID < tramadol < opioids
(morphine, oxycodone, hydromorphone).
- Requesting a lesser dose of the same medication IF
ORDERED.
- Requesting a less intrusive route of administration
if both routes are prescribed by the provider (PO <
IV).
07/18/24 18:00
Metoprolol Xl [Toprol Xl] 25 mg PO QPM
07/19/24 06:00
Levothyroxine [Synthroid] 100 mcg PO DAILY@0600
07/19/24 08:00
Multivitamin [Theragran] 1 tablet PO DAILY
Abnormal Lab Results
07/18/24
05:02
D-Dimer 1.79 H ug/mlFEU
(0.00-0.50)
Chloride 108 H mmol/L
(98-107)
BUN 21 H mg/dl
(7-17)
Glucose 102 H mg/dl
(70-99)
07/18/24 05:02
07/18/24 05:02
Vital Signs
Initial and Last Documented VS:
Initial Vital Signs
Temp Pulse Resp BP Pulse Ox
98.2 F 87 20 108/66 93
07/18/24 04:01 07/18/24 04:01 07/18/24 04:01 07/18/24 04:01 07/18/24 04:01
Last Documented Vital Signs
Temp Pulse Resp BP Pulse Ox
97.6 F 90 21 126/72 97
07/18/24 08:00 07/18/24 12:05 07/18/24 12:05 07/18/24 10:51 07/18/24 12:05
<Man Han, DO - Last Filed: 07/18/24 12:30>
Orders/Labs/Results
Orders:
Orders
07/18/24 03:51
EKG [Electrocardiogram (*1)] Urgent
Reason for Study: Chest Pain
EKG- Treatment ONCE
07/18/24 05:02
Basic Metabolic Panel Urgent
Complete Blood Count/No Diff Urgent
D-Dimer Urgent
Magnesium Urgent
Troponin I Urgent
07/18/24 06:05
CT Chest PE Study Urgent
Comment:
Reason For Exam: chest pain w elevated d-dimer
07/18/24 08:50
CT Head W/o Iv Contrast Urgent
Comment:
Reason For Exam: post op from meningioma removal. r/o hemorrhage
07/18/24 11:54
Apixaban [Eliquis] 10 mg PO NOW STA
07/18/24 12:23
Admit/Transfer Patient As Directed
Co-Sign Provider:
Level of Care: Inpatient admission
Assign to:: IMU- Intermediate Care
Physician / Group: hospitalist
Diagnosis: PE
Reason for Hospitalization: PE
Expected length of stay greater than two midnights?: Yes
ELOS- Estimated Length of Stay in days: 3
I certify the patient meets the requirements for IP care: Yes
PRN Pain Medication Management As Directed
May give lesser potent ordered pain med per pt: Yes
preference::
Protocol:: Medication orders for pain may be administered in a
manner that supports deferring to patient preference
when the pt is:
- Requesting an ordered lesser potent pain medication.
Least to most potent pain medications are defined
as: acetaminophen < NSAID < tramadol < opioids
(morphine, oxycodone, hydromorphone).
- Requesting a lesser dose of the same medication IF
ORDERED.
- Requesting a less intrusive route of administration
if both routes are prescribed by the provider (PO <
IV).
07/18/24 18:00
Metoprolol Xl [Toprol Xl] 25 mg PO QPM
07/19/24 06:00
Levothyroxine [Synthroid] 100 mcg PO DAILY@0600
07/19/24 08:00
Multivitamin [Theragran] 1 tablet PO DAILY
Abnormal Lab Results
07/18/24
05:02
D-Dimer 1.79 H ug/mlFEU
(0.00-0.50)
Chloride 108 H mmol/L
(98-107)
BUN 21 H mg/dl
(7-17)
Glucose 102 H mg/dl
(70-99)
07/18/24 05:02
07/18/24 05:02
Vital Signs
Initial and Last Documented VS:
Initial Vital Signs
Temp Pulse Resp BP Pulse Ox
98.2 F 87 20 108/66 93
07/18/24 04:01 07/18/24 04:01 07/18/24 04:01 07/18/24 04:01 07/18/24 04:01
Last Documented Vital Signs
Temp Pulse Resp BP Pulse Ox
97.6 F 90 21 126/72 97
07/18/24 08:00 07/18/24 12:05 07/18/24 12:05 07/18/24 10:51 07/18/24 12:05
<Pio Mckeon MD - Last Filed: 07/18/24 13:53>
MDM/Problems Addressed
MDM/Problems Addressed:
D-dimer elevated. As such, CT angiogram PE study ordered.
<Pio Mckeon MD - Last Filed: 07/18/24 13:53>
*EKG
Interpreted by ED Provider?: Yes
EKG Intrepretation Date: 07/18/24
Heart Rate: 80
Rate: normal
Rhythm: sinus
[place]: normal axis
Interval: normal interval
Ischemia: T-wave inversion
<Man Han DO - Last Filed: 07/18/24 12:30>
*Radiology
Radiology exam reviewed: preliminary read by ED provider
*Pulse Oximetry
Patient hypoxic: no
*Phosphatic Fertilizer Supervisor Interpretation
Rate: normal
Interpretation: normal
Rhythm: sinus
*Critical Care Note
Total Time (30-74mins, 75-104mins- exclusive of procedures): 35 minutes
Data Reviewed
Source: patient
Prescriptions/Medications Considered But Not Given:
Considered heparin but Eliquis recommended by neurosurgery
<Man Han DO - Last Filed: 07/18/24 12:30>
Patient Management
Discussion with other providers: Hospitalist and Stonemason Supervisor (Case discussed with neurosurgery Dr. Gonzales)
<Man Han DO - Last Filed: 07/18/24 12:30>
Update Note
Update Note:
0900 CTA shows suspected bilateral pulmonary emboli. Patient is hemodynamically stable. Case discussed with Dr. Gonzales of neurosurgery who recommends noncontrast head CT. If unremarkable, may proceed with Eliquis. She reports that she prefers
Eliquis over heparin. Her cell phone number for contact for any issues is [phone]
CT negative for any postoperative hemorrhage. Neurosurgery feels that the patient can stay here for treatment with Eliquis. Pulse ox ranging 93 to 96%. Admit
12 PM patient does admit to history of pulmonary embolism when she had COVID. Remains stable. Neurosurgery certainly recommends Eliquis over heparin
ED Attending Note
<Pio Mckeon MD - Last Filed: 07/18/24 13:53>
-
Portions of this chart may have been created with voice recognition software.� Occasional wrong word or��sound alike� substitutions may have occurred due to the inherent limitations of voice recognition software.
Discharge Plan
Departure
Patient Disposition: Admit
Date of Disposition: 07/18/24
Time of Disposition: 10:10
Admit to: Telemetry
Presentation/result/management discussed w/ accepting MD/DO: Hospitalist
Patient with high blood pressure during this ER visit?: No
Discharge Problem:
Pulmonary emboli
Interventions
Interventions:
*Risk Screen - Suicide Last Done: 07/18/24 04:01
*General Assessment Last Done: 07/18/24 04:44
*Neglect/Abuse Screening Last Done: 07/18/24 08:00
*ED- Fall Risk Assessment Last Done: 07/18/24 04:44
*ED COVID-19 Vaccine History Last Done: 07/18/24 04:44
ED- Cardiac Assessment Last Done: 07/18/24 08:00
--- NOTE | 2024-07-18 05:00 | PTCARENOTE ---
At 1999 patient reported feeling her 'heart racing'. HR 90s, BP 117/79, pulse ox 96 on RA. EKG done showing NSR. Patient denies SOB or pain when taking a deep breath. VALVE FITTER made aware, orders for PRN nebs, melatonin, and to place patient on 2L of
oxygen. Patient reports improvement in symptoms with O2. Plan of care ongoing.
[2024-07-18 05:21] LABS: Hematocrit 38.5 % (37.0-47.0); Hemoglobin 13.2 g/dL (12.0-16.0); Mean Corp Hgb Conc. 34.3 g/dL (33.0-37.0); Mean Corpuscular Hgb 29.4 pg (27.0-31.0); Mean Corpuscular Volume 85.7 fL (81.0-99.0); Mean Platelet Volume 9.4 fL (7.4-10.4); Platelet Count 296 10^3/uL (130-400); Red Blood Cell Count 4.49 10^6/uL (4.20-5.40); Red Cell Dist. Width 13.7 % (11.5-14.5); White Blood Cell Count 9.8 10^3/uL (4.8-10.8)
[2024-07-18 05:38] LABS: Blood Urea Nitrogen 21 mg/dl (7-17); Carbon Dioxide 26 mmol/L (22-30); Chloride 108 mmol/L (98-107); Estimated Creatinine Clearance 115 ml/min; Glucose 102 mg/dl (70-99); Magnesium 1.9 mg/dl (1.6-2.3); Potassium 4.1 mmol/L (3.5-5.1); Sodium 140 mmol/L (135-145); eGFR > 60.00
[2024-07-18 05:53] LABS: D-Dimer 1.79 ug/mlFEU (0.00-0.50)
[2024-07-18 06:04] LABS: Troponin I < 0.012 ng/ml
--- NOTE | 2024-07-18 08:30 | EDRN ---
the pt pressed the call cummings and this RN entered the pts room, the pt stated to this RN, 'I am anxious, i want to speak to the doctor on an update', this RN notified Dr. Han, Dr. Han currently still at the pts bedside
--- NOTE | 2024-07-18 08:43 | EDRN ---
the pt pressed the call cummings and this RN and PCT Atiya entered the pts room, the pt stated that she needed to use the bathroom, the pt was unhooked from the monitor and ambulated to the bathroom with no issues
[2024-07-18] MEDS: ELIQUIS 10 MG PO ×2 (12:33→19:52)
--- NOTE | 2024-07-18 13:19 | EDRN ---
this RN processed the pts admission orders and notified pharmacy
--- NOTE | 2024-07-18 14:00 | HPS.HSE ---
Addendum entered and electronically signed by sE Smith MD 07/18/24 14:49:
I personally performed a history and physical exam of the patient and discussed management with the resident. I reviewed the resident's note and agree with the documented findings and plan of care HPI/CC.
GENERAL: well developed, well nourished, female in no apparent distress
HEENT:NC--crown of head has long incision c/d/i--stitches still present
HEART: regular rate and rhythm, +S1, +S2
LUNGS : clear to auscultation bilaterally
ABDOM: soft, nontender, nondistended, + bowel sounds
EXT: no cyanosis, clubbing, or edema--no calf pain or tenderness
NEUROLOGIC: grossly intact
Chest tightness --due to several subsegmental PE in bilateral lower lobes seen on CT chest--provoked due to recent surgery (S/p meningioma resection on 07/08/2024)--Patient is hemodynamically stable--OBS--troponin and EKG neg so no need for repeat
echo--Check venous ultrasound to rule out DVT (If DVT positive- 9 months treatment with Eliquis, if DVT negative then 6 months)--cont eliquis as started in ED--If remains stable in the next 24 hours, possible discharge.
History of meningioma s/p resection 07/08/24--Head CT reviewed postsurgical changes, no acute intracranial abnormalities noted.
History of sinus tachycardia--Continue metoprolol
Hypothyroidism--Continue levothyroxine
Morbid obesity -- likely due to excess calories--affects all aspects of care
DVT prophylaxis-Eliquis
Full code
Original Note:
Family Physician
-
Family Physician: Juanpablo Mathis
Chief Complaint
-
Chest tingling/tightness
History of Present Illness
64-year-old female, s/p meningioma removal on 07/08/2024, past history of PE(was on Eliquis), presented with chest burning/tightness started this morning at 2 AM, nonradiating, resolved spontaneously on its own. Patient denies shortness of breath,
nausea, vomiting. She denies any lower extremity swelling. On arrival to ED vitals are stable, chest CT reveals probable several subsegmental bilateral lower lobe pulmonary emboli. Neurosurgery (Dr. Adriane Gonzales) at [place] was contacted and
recommended to start Eliquis. Patient is taking metoprolol for sinus tachycardia and has been seeing hardware design engineer. Patient reports of a cardiac workup with echocardiogram 06/23/2024 revealing LVEF of 60- 65%, normal stress test.
Medical History
Past Medical History
Past Medical History: Reports Hypothyroidism
Additional Past Medical History:
History of meningioma s/p removal on 07/08/2024
Past Surgical History: Reports Cholecystectomy and Orthopedic (Hip replacement)
Additional Past Surgical History:
History of meningioma s/p removal on 07/08/2024
Social History
Tobacco: Non-smoker
Alcohol: None
Drug: None
Personal:
Living: With Family
Family History
Family History: Not pertinent
Allergies / Home Medications
Allergies reflects when Allergies were last updated in [email or web address].
Home Medications with original date entered in [email or web address]
Allergy/Medication List:
Allergies
Allergy/AdvReac Type Severity Reaction Status Date / Time
No Known Allergies Allergy Verified 07/18/24 04:01
Home Medications
levothyroxine 100 mcg tablet (Levoxyl) 100 mcg PO Daily Thyroid 04/05/21
metoprolol succinate 25 mg tablet,extended release 24 hr (Toprol XL) 25 mg PO QPM 07/18/24
therapeutic multivitamin 1 tab PO DAILY 07/18/24
Review of Systems
-
History Source: Patient
A 12 point ROS was completed and negative except as noted: Yes
Physical Exam
Vital Signs
Vital Signs
Temp Pulse Resp BP Pulse Ox
97.6 F 90 21 126/72 97
04/26/25 08:00 07/18/24 12:05 07/18/24 12:05 07/18/24 10:51 07/18/24 12:05
Physical Exam
General: No Apparent Distress and Comfortable
HEENT: NormoCephalic and Anicteric
Respiratory: Clear
Cardiac: S1/S2 and Regular Rhythm
GI: Soft, Non Tender and Non Distended
Musculoskeletal: No Edema
Skin: Warm and Dry
Neuro: AO x 3
Psych: Calm
Laboratory Results
-
07/18/24 05:02
07/18/24 05:02
Laboratory Results
Troponin I < 0.012 ng/ml 07/18/24 05:02
Data Reviewed
-
CT Scan: Image Personally Visualized and interpreted, Report Reviewed by me and Discussed with Physician
Lab Data: Labs Reviewed by me and Discussed with Physician
Impression/Plan
-
IMPRESSION:
Chest tightness due to subsegmental PE on the lower lobe seen on CT chest
History of meningioma s/p resection
History of sinus tachycardia
Hypothyroidism
Morbid obesity
PLAN:
Chest tightness due to subsegmental PE on the lower lobe seen on CT chest
Suspect provoked PE
S/p meningioma resection on 07/08/2024
Patient is hemodynamically stable
Admit for observation (observe acute mental status change due to recent meningioma removal)
Troponin negative, EKG unremarkable
Check venous ultrasound to rule out DVT (If DVT positive- 9 months treatment with Eliquis, if DVT negative then 6 months)
First dose of Eliquis given in ED, continue 10 mg twice daily.
Monitor vitals closely
If remains stable in the next 24 hours, possible discharge.
History of meningioma s/p resection
Head CT reviewed postsurgical changes, no acute intracranial abnormalities noted.
Observe for any acute mental status change
History of sinus tachycardia
Continue metoprolol
Hypothyroidism
Continue levothyroxine
Morbid obesity likely due to excess calories
DVT prophylaxis-Eliquis
Regular diet
Full code
--- NOTE | 2024-07-18 15:41 | CHAP ---
Visited Roosevelt at 9am - she is known to this kitchen designer from the [facility] [place]. Roosevelt has a very strong spirit and is a lot of fun to talk to. She shared her experience of the past couple of weeks. Emotional and spiritual support provided.
--- NOTE | 2024-07-18 16:45 | EDRN ---
this RN called the receiving unit and notified them that paper report was going to be tubed up
--- NOTE | 2024-07-18 17:59 | PTCARENOTE ---
Pt was received from ED at 1745. Pt ambulated to the room. Denies SOB, CP or other symptoms. Pt is AAOx3, BP 98/74, NSR in 90s on the monitor. Care plan reviewed. at the bedside.
[2024-07-18] MEDS: TOPROL XL 25 MG PO (18:33)
[2024-07-18] MEDS: MELATONIN 5 MG PO (21:00)
[2024-07-19] MEDS: TYLENOL 650 MG PO (00:38)
[2024-07-19 03:49] VITALS: BP 121/78
[2024-07-19] MEDS: SYNTHROID 100 MCG PO (05:05)
[2024-07-19 06:00] VITALS: BMI 46.6
[2024-07-19 07:55] VITALS: BP 123/72
[2024-07-19] MEDS: ELIQUIS 10 MG PO (08:01)
[2024-07-19] MEDS: THERAGRAN 1 TABLET PO (08:01)
--- NOTE | 2024-07-19 11:07 | W.PN.HOSP.TC ---
Today's Communication/Plan
-
Vitals remained stable
Plan to discharge home on 10 mg BID Eliquis for 7 days and then decrease to 5 mg twice daily
Assessment / Plan
Assessment / Plan
IMPRESSION:
Chest tightness due to subsegmental PE on the lower lobe seen on CT chest
History of meningioma s/p resection
History of sinus tachycardia
Hypothyroidism
Morbid obesity
PLAN:
Chest tightness due to subsegmental PE on the lower lobe seen on CT chest
Suspect provoked PE
S/p meningioma resection on 07/08/2024
Patient is hemodynamically stable
Admit for observation (observe acute mental status change due to recent meningioma removal)
Troponin negative, EKG unremarkable
Check venous ultrasound to rule out DVT (If DVT positive- 9 months treatment with Eliquis, if DVT negative then 6 months)
First dose of Eliquis given in ED, continue 10 mg twice daily.
Vitals remained stable
Plan to discharge home on 10 mg BID Eliquis for 7 days and then decrease to 5 mg twice daily
History of meningioma s/p resection
Head CT reviewed postsurgical changes, no acute intracranial abnormalities noted.
Observe for any acute mental status change
History of sinus tachycardia
Continue metoprolol
Hypothyroidism
Continue levothyroxine
Morbid obesity likely due to excess calories
DVT prophylaxis-Eliquis
Regular diet
Full code
Anticipated Discharge: Today
Subjective/Interval History
-
Date of Service: July 19, 2024
No overnight events, patient was briefly put on 2 L of oxygen at night
Objective Data
-
Vital Signs:
Vital Signs
Temp Pulse Resp BP Pulse Ox
98.0 F 93 16 123/72 98
07/19/24 07:55 07/19/24 07:55 07/19/24 07:55 07/19/24 07:55 07/19/24 07:55
I&O
07/18/24 07/19/24 07/20/24
06:59 06:59 06:59
Intake Total 240 / 240
Balance 240 / 240
Review of Systems
-
All other systems: Reviewed and negative
Physical Exam
-
General: Comfortable
HEENT: Normocephalic and Atraumatic
Respiratory: Clear to Auscultation
Cardiac: Regular Rhythm and S1/S2
GI: Soft, Nontender and Nondistended
Musculoskeletal: No Edema
Neuro: AO x 3
Psych: Calm
Data Reviewed
-
Labs: Labs Reviewed by me and Discussed with Physician
--- NOTE | 2024-07-19 11:22 | W.PN.UPDATE ---
Update Note
Progress Note Update
I saw and evaluated the patient. I reviewed the resident�s note and agree with findings and plan as documented in the resident�s note.
Denies SOB.
Gen: NAD, AAOx3.
Eyes: EOMI, PERRLA, no scleral icterus.
Neck: supple.
CV: tachy, reg rhythm, +S1/S2, no m/r/g.
Resp: CTAB, no rales, wheezes, or rhonchi.
Abd: +BS, soft, NT, ND
Skin: No rashes.
Neuro: CN 2-12 intact, non-focal.
Psych: Normal mood and affect.
CTA chest: Probable several subsegmental bilateral lower lobe pulmonary emboli as described above. Mildly limited study. No evidence of right heart strain. Small pericardial effusion. Slightly progressed. Mild bilateral upper lobe atelectasis versus
scarring.
CT Brain: No acute intracranial abnormality noted.
B/L LE U/S:
1. No sonographic evidence for lower extremity venous thrombosis.
2. 4.3 cm Najera's cyst in the right popliteal fossa.
B/L lower lobe subsegmental pulmonary emboli:
-Trop NEG, no evidence of RV strain
-Continue Eliquis
-Saturating well on room air
Other problems:
h/o meningioma s/p resection 07/08/24
h/o sinus tachycardia: cont BB
Hypothyroidism: cont levothyroxine
Morbid obesity due to excess calories
FULL/Eliquis
Medically cleared for discharge.
Total time spent on d/c = 31 min. This included today's physical exam, progress note, review of laboratory and diagnostic data, preparation of discharge documents and prescriptions, and discussions about the pt's hospital course and discharge plan
with the patient and other medical transcription radiology involved in the patient's care.
[2024-07-19 11:51] VITALS: BP 118/75
--- NOTE | 2024-07-19 12:28 | W.DCSUMMARY ---
Discharge Summary
Discharge Data
Date of Admission: 07/18/24
Date of Discharge: 07/19/24
-
Pending Results: No
Hospital Course
Discharging Physician : Dr Javon Sun, Dr. Jerel Little
Disposition : Home
Primary care physician : Brie Mathis
Principal Discharge diagnosis :
Chest tightness due to subsegmental PE on the lower lobe seen on CT chest
History of meningioma s/p resection
Chronic Discharge diagnosis :
History of sinus tachycardia
Hypothyroidism
Morbid obesity
Hospital Course : 64-year-old female with recent meningioma removal 10 days ago presented to the ED with burning sensation in the chest. Chest CT revealed several subsegmental PE in bilateral lower lobes likely provoked due to recent surgery.
Patient was hemodynamically stable in the ED and continued to remain so. Troponin and EKG were negative. Peripheral venous ultrasound was negative for DVT. She was started on Eliquis in the ED. Patient remained stable in the next 24 hours and is
being discharged home on Eliquis 10 mg twice daily for another 6 days and then decrease dose to 5 mg twice daily for at least 6 months. Advised to follow-up with pulmonology and neurosurgery after discharge.
Important imaging findings :
Chest CT 07/19/2024
Probable several subsegmental bilateral lower lobe pulmonary emboli as described above. Mildly limited study. No evidence of right heart strain. Small pericardial effusion. Slightly progressed. Mild bilateral upper lobe atelectasis versus scarring.
Head CT- no acute abnormalities
Peripheral vascular ultrasound
1. No sonographic evidence for lower extremity venous thrombosis.
2. 4.3 cm Najera's cyst in the right popliteal fossa.
Procedure findings : None
Discharge Plan
-
Patient Disposition: Home (Routine Discharge)
Discharge Diagnosis/Procedures: Chest tightness due to subsegmental PE on the lower lobe seen on CT chest
History of meningioma s/p resection
History of sinus tachycardia
Hypothyroidism
Morbid obesity
Condition: Good
Diet: Regular
Activity: No restrictions
Driving Restrictions: As prior to admission
Bathing Restrictions: None
Referrals:
Juanpablo Mathis MD [Family Provider] - in less than 1 week
Santos Donald MD [Active] - in three to four weeks
Additional Discharge Medication Instructions: Continue Eliquis 10 mg twice daily for 6 more days then decrease the dose to 5 mg twice daily for at least 6 months.
Please follow-up with pulmonology and primary care physician.
Follow-up with your neurosurgeon at [place].
Prescriptions:
New
Eliquis 5 mg Tablet
10 mg PO BID Qty: 12 0RF
Eliquis 5 mg Tablet
5 mg PO BID Qty: 30 0RF
Continued
levothyroxine [Levoxyl] 100 MCG tablet
100 mcg PO Daily
therapeutic multivitamin Tablet
1 tab PO DAILY
metoprolol succinate [Toprol XL] 25 mg tablet extended release 24 hr
25 mg PO QPM
Discharge Orders:
Discharge Patient (As Directed); Ordered 07/19/24
Ordered By: Javon Sun
Discharge Date and Time
Print Language: [id number]
--- NOTE | 2024-07-19 13:46 | CM ---
Patient stable for d/c today. Patient seen bedside w/ spouse, initial assessment completed. Patient is a 64-year-old female, s/p meningioma removal on 07/08/2024, past history of PE(was on Eliquis), presented with chest burning/tightness.
Patient resides w/ spouse in a 2STH- 3 steps to enter, ramp access. Independent w/ ambulating and ADLs, no device or DME required. No SNF hx reported, home PT in the past arranged by [facility].
Address, point of contact and insurance verified
PCP: Juanpablo Mathis
Pharmacy: [facility]
Discussed w/ nurse, patient will d/c on Eliquis for 6 months. 30 day coupon provided to patient, coverage assistance information provided
IMM verbally reviewed w/ patient, copy given to patient, copy on chart
Plan: Home today; no needs
--- NOTE | 2024-07-19 14:07 | CHAP ---
Roosevelt was in good spirits during my visit at 9:30. Emotional and spiritual support provided, prayer blanket given.
== END 2024-07-19 13:32 | disposition home or self-care (01) | DRG 176 ==
LOC: 4 EAST ACU 12:37
PROVIDERS: Student in an Organized Health Care Education/Training Program; ADMITTING PHYSICIAN Internal Medicine; ATTENDING PHYSICIAN Internal Medicine; EMERGENCY PHYSICIAN Emergency Medicine; FAMILY PHYSICIAN Internal Medicine Geriatric Medicine
DX: I26.94 Multiple subsegmental thrombotic pulmonary emboli without acute cor pulmonale (principal); I31.39 Other pericardial effusion (noninflammatory); Z68.42 Body mass index [BMI] 45.0-49.9, adult; E66.01 Morbid (severe) obesity due to excess calories; E03.9 Hypothyroidism, unspecified; M71.20 Synovial cyst of popliteal space [Baker], unspecified knee; Z79.01 Long term (current) use of anticoagulants; Z86.018 Personal history of other benign neoplasm
CPT/HCPCS: 70450; 71275; 80048; 83735; 84484; 85027; 85379; 93005; 93970; 99291; Q9967

== ENCOUNTER → 2024-07-22 12:33 | Outpatient (REF) | payer BC, SELFPAY ==
[2024-07-22 13:03] LABS: % Basophils 0.4 % (0-2); % Eosinophils 0.4 % (0-6); % Immature Granulocytes 0.4 % (0-0.5); % Lymphocytes 14.3 % (20.5-51.1); % Monocytes 11.2 % (1.7-9.3); % Neutrophils 73.3 % (42.2-75.2); Absolute Lymphocytes 1.5 10^3/uL (1.2-3.4); Absolute Monocytes 1.2 10^3/uL (0.1-0.6); Absolute Neutrophils 7.9 10^3/uL (1.4-6.5); Hematocrit 39.5 % (37.0-47.0); Hemoglobin 13.1 g/dL (12.0-16.0); Mean Corp Hgb Conc. 33.2 g/dL (33.0-37.0); Mean Corpuscular Hgb 28.7 pg (27.0-31.0); Mean Corpuscular Volume 86.4 fL (81.0-99.0); Mean Platelet Volume 9.4 fL (7.4-10.4); Nucleated Red Blood Cells % 0 %; Platelet Count 342 10^3/uL (130-400); Red Blood Cell Count 4.57 10^6/uL (4.20-5.40); White Blood Cell Count 10.8 10^3/uL (4.8-10.8)
[2024-07-22 13:19] LABS: Blood Urea Nitrogen 13 mg/dl (7-17); Calcium 9.2 mg/dl (8.4-10.2); Carbon Dioxide 24 mmol/L (22-30); Chloride 107 mmol/L (98-107); Glucose 96 mg/dl (70-99); Phosphorus 3.8 mg/dl (2.5-4.5); Potassium 4.5 mmol/L (3.5-5.1); Sodium 141 mmol/L (135-145); eGFR > 60.00
== END ==
LOC: REG 12:33
PROVIDERS: ATTENDING PHYSICIAN Internal Medicine Cardiovascular Disease; FAMILY PHYSICIAN Internal Medicine Geriatric Medicine
DX: R00.0 Tachycardia, unspecified (principal)
CPT/HCPCS: 36415; 80069; 85025

== ENCOUNTER 2024-07-24 09:29 | Emergency (ER) | payer BC, SELFPAY ==
[2024-07-24 09:43] VITALS: BP 119/84
[2024-07-24 10:04] LABS: % Basophils 0.7 % (0-2); % Eosinophils 0.3 % (0-6); % Immature Granulocytes 0.2 % (0-0.5); % Lymphocytes 15.1 % (20.5-51.1); % Monocytes 10.4 % (1.7-9.3); % Neutrophils 73.3 % (42.2-75.2); Absolute Basophils 0.1 10^3/uL (0-0.2); Absolute Lymphocytes 1.4 10^3/uL (1.2-3.4); Absolute Monocytes 0.9 10^3/uL (0.1-0.6); Absolute Neutrophils 6.6 10^3/uL (1.4-6.5); Hematocrit 39.8 % (37.0-47.0); Hemoglobin 13.4 g/dL (12.0-16.0); Mean Corp Hgb Conc. 33.7 g/dL (33.0-37.0); Mean Corpuscular Hgb 28.8 pg (27.0-31.0); Mean Corpuscular Volume 85.4 fL (81.0-99.0); Mean Platelet Volume 9.3 fL (7.4-10.4); Nucleated Red Blood Cells % 0 %; Platelet Count 324 10^3/uL (130-400); Red Blood Cell Count 4.66 10^6/uL (4.20-5.40); Red Cell Dist. Width 14.2 % (11.5-14.5)
[2024-07-24 10:14] LABS: PT 16.5 Sec (11.4-14.6)
[2024-07-24 10:27] LABS: ALT (SGPT) 21 U/L (0-35); AST (SGOT) 17 U/L (14-36); Albumin 4.1 g/dl (3.5-5.0); Alkaline Phosphatase 95 U/L (38-126); Blood Urea Nitrogen 14 mg/dl (7-17); Calcium 9.1 mg/dl (8.4-10.2); Carbon Dioxide 24 mmol/L (22-30); Chloride 106 mmol/L (98-107); Glucose 109 mg/dl (70-99); Potassium 4.5 mmol/L (3.5-5.1); Sodium 141 mmol/L (135-145); Total Bilirubin 0.8 mg/dl (0.2-1.3); Total Protein 6.6 g/dl (6.3-8.2); Troponin I < 0.012 ng/ml; eGFR > 60.00
[2024-07-24 11:06] VITALS: BP 132/79
--- NOTE | 2024-07-24 13:26 | CON.CAR ---
Addendum entered and electronically signed by Vero Damon MD 07/24/24 16:19:
I saw and examined the patient.
The HERPETOLOGIST's note was reviewed and I agree with the note.
Comment: 64-year-old female (known to Dr. Wiseman, her primary network developer), with PSVT, sinus tachycardia, hypertension, hypothyroidism, PE (in the setting of COVID in 2021), meningioma resection 16 days ago, and recurrent diagnosis of PE
(07/18/2024) present is with cp this am when lying flat in the bed that was a burning. It was relieved with sitting up. Recent extensive cardiac evaluation that was normal. On exam, she has a rrr, no m/r/g, lungs CTA bl, no le edema. Trop normal, ecg
without ischemia. Cp 2/2 to GERD in the setting of DOAC use. Encouraged her to start ppi, reviewed appropriate way to take. Avoid foods that trigger gerd, lose weight given morbid obesity and elevate the HOB. Continue her Eliquis for PE.
Follow up with Dr Wiseman in the office.
Original Note:
Consultation
Consultation Request
Date/Time Consultation Requested: 07/24/2024 13:00
Date/Time Consultation Performed: 07/24/2024 13:20
Requesting Provider: Amaury Winston PA-C
Performing Provider: MARCIO Barrett for Dr. Damon
Reason for Consultation: Chest pain
Medical History
-
Chief Complaint: Chest pain
History of Present Illness:
Suki Pritchard is a 64-year-old female (known to Dr. Wiseman, her primary network developer), with PSVT, sinus tachycardia, hypertension, hypothyroidism, PE (in the setting of COVID in 2021), meningioma resection, and recent diagnosis of PE (07/18/2024)
who presents to the emergency room with a chief complaint of chest pain. The plan is for apixaban for at least 6 months. She woke up with chest burning at approximately 4:30. She has a nonischemic EKG and a troponin <0.012.
Past Medical History
Past Medical History: Arrhythmias (PSVT, sinus tachycardia), HTN, Hypothyroidism and Other (PE [2021 & 06/2024], meningioma)
Past Surgical History: Brain (Meningioma 07/08/2024)
Social History
Tobacco: Non-Smoker
Alcohol: None
Drug: None
Personal:
Living: With Family
Family History
Family History: Reviewed & Not Pertinent
Allergies / Home Medications
Allergy/AdvReac Type Severity Reaction Status Date / Time
No Known Allergies Allergy Verified 07/24/24 09:43
�Medication �Instructions �Recorded �Confirmed �Type
levothyroxine 100 mcg tablet 100 mcg PO Daily Thyroid 04/05/21 07/18/24 History
(Levoxyl)
metoprolol succinate 25 mg 25 mg PO QPM Blood Pressure 07/18/24 07/18/24 History
tablet,extended release 24 hr
(Toprol XL)
therapeutic multivitamin 1 tab PO DAILY Supplement 07/18/24 07/18/24 History
apixaban 5 mg tablet (Eliquis) 5 mg PO BID #30 tabs 07/19/24 Rx
apixaban 5 mg tablet (Eliquis) 10 mg (2 x 5 mg) PO BID #12 tabs 07/19/24 Rx
Physical Exam
Vital Signs
Temp Pulse Resp BP Pulse Ox
98.2 F 90 21 132/79 99
07/24/24 09:43 07/24/24 11:06 07/24/24 11:06 07/24/24 11:06 07/24/24 11:06
Lab Results
07/24/24 09:56
07/24/24 09:56
Troponin I < 0.012 ng/ml 07/24/24 09:56
Xar-V-Fxwepwiaakj Pept 95.0 pg/ml 07/24/24 09:56
Impression / Plan
-
I/P: 64F with with PSVT, sinus tachycardia, hypertension, hypothyroidism, PE (in the setting of COVID in 2021), meningioma resection, and recent diagnosis of PE (07/18/2024) who presents to the emergency room with a chief complaint of chest pain.
Primary network developer: Dr. Wiseman
Chest pain
- Burning sensation that she woke up with early in the morning that abated with sitting up, consider GERD
- EKG without ischemia
- Troponin <0.012
PE
- She had a PE in 2021 when she had COVID-19 infection requiring hospitalization
- This PE is believed to be provoked in the setting of her recent brain surgery
- Length of anticoagulation per pulmonary or hematology
Meningioma status post-resection 07/08/2024
Sinus tachycardia, on metoprolol
Hypothyroidism on levothyroxine
DATA:
PT Pet/CT Myocard Perf Mult RB, 06/23/2024:
CONCLUSION:
Perfusion imaging is normal no fixed or reversible defects are seen.
Systolic function is normal. The ejection fraction is greater than 75%.
Stress Risk is moderate risk study (1 - 3% MT or /year) due to pharmacologic agent used.
Transthoracic echocardiogram 06/23/2024:
CONCLUSIONS
LV ejection fraction is 60-65%. No regional wall motion abnormalities are seen.
Normal right ventricular size and function.
Aortic sclerosis without stenosis.
Data Reviewed
-
EKG: Report Reviewed by me (Sinus rhythm, nonspecific T wave abnormality, rate 95)
Radiology: Report Reviewed by me (CXR: Mild cardiomegaly. Mild interstitial and alveolar cardiogenic pulmonary edema.)
Labs: Labs Reviewed by me
Old Records: Reviewed
--- NOTE | 2024-07-24 13:46 | ED.GENMED ---
History of Present Illness
<Amaury Winston PA-C - Last Filed: 07/25/24 15:10>
General
Chief Complaint: Chest Pain
Time Seen by Provider: 07/24/24 10:47
History of Present Illness
History of Present Illness:
64-year-old female with history of meningioma excision presents to the emergency department for evaluation of 'burning' chest pain that woke her up from sleep early this morning. It is somewhat comparable to the pain that resulted in her
presentation to this ER over the weekend at which time she was diagnosed with small peripheral pulmonary embolisms. She is currently on Eliquis and has been compliant with this medication. Imaging at that time also noted a small pericardial
effusion. She denies any dyspnea and denies symptoms at present. 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
Past History
<Amaury Winston PA-C - Last Filed: 07/25/24 15:10>
Past History
ED Past Medical History: Hypothyroidism and Other (COVID infection, SVT September 2022)
ED Past Surgical History: Orthopedic
Social History
Tobacco: Non-smoker
Alcohol: Occasional
Drug: None
Personal:
Living: with family
Employment: Employed
Family History
Family History: Other (Noncontributory)
Review of Systems
<Amaury Winston PA-C - Last Filed: 07/25/24 15:10>
Review of Systems
Allergies reviewed?: Yes
All Other Systems: ROS reviewed and negative except as documented in HPI and ROS
Phy Exam
<KALYN Zhang Last Filed: 07/25/24 15:10>
Physical Exam
Physical Exam:
GEN: Well appearing, NAD, WDWN
HEENT: Oral mucosa moist, no scleral icterus
Cardiac: Regular rate and rhythm, no murmurs
Lung: No respiratory distress, no tachypnea, lungs clear to auscultation bilaterally
MSK: No gross deformity or injuries
Skin: Good color, no pallor or jaundice, no rashes
Neuro: AO x3, moves all extremities freely
Psych: Calm, cooperative
Scores
<MARCIO Carrero - Last Filed: 07/24/24 16:17>
Heart Score for Chest Pain Patients
STEMI patient?: Not applicable
Course
<Amaury Winston PA-C - Last Filed: 07/25/24 15:10>
Orders/Labs/Results
Orders:
Orders
07/24/24 09:30
Electrocardiogram (*1) Urgent
Reason for Study: Chest Pain
EKG- Treatment ONCE
07/24/24 09:56
Complete Blood Count/With Diff Urgent
Comprehensive Metabolic Panel Urgent
NT-proBNP Urgent
Comment: ADD
Prothrombin Time Urgent
Troponin I Urgent
07/24/24 11:12
CR Chest - 2 Views Urgent
Comment:
Reason For Exam: chest pain
07/24/24 11:59
Add On- LAB Urgent
Tests Added?: BNP
Abnormal Lab Results
07/24/24
09:56
Absolute Neuts (auto) 6.6 H 10^3/uL
(1.4-6.5)
Absolute Monos (auto) 0.9 H 10^3/uL
(0.1-0.6)
Lymphocytes % 15.1 L %
(20.5-51.1)
Monocytes % 10.4 H %
(1.7-9.3)
PT 16.5 H Sec
(11.4-14.6)
Glucose 109 H mg/dl
(70-99)
07/24/24 09:56
07/24/24 09:56
Vital Signs
Initial and Last Documented VS:
Initial Vital Signs
Temp Pulse Resp BP Pulse Ox
98.2 F 106 16 119/84 98
07/24/24 09:43 07/24/24 09:43 07/24/24 09:43 07/24/24 09:43 07/24/24 09:43
Last Documented Vital Signs
Temp Pulse Resp BP Pulse Ox
98.2 F 80 15 130/68 99
07/24/24 09:43 07/24/24 16:33 07/24/24 16:33 07/24/24 16:33 07/24/24 16:33
<MARCIO Carrero - Last Filed: 07/24/24 16:17>
Orders/Labs/Results
Orders:
Orders
07/24/24 09:30
Electrocardiogram (*1) Urgent
Reason for Study: Chest Pain
EKG- Treatment ONCE
07/24/24 09:56
Complete Blood Count/With Diff Urgent
Comprehensive Metabolic Panel Urgent
NT-proBNP Urgent
Comment: ADD
Prothrombin Time Urgent
Troponin I Urgent
07/24/24 11:12
CR Chest - 2 Views Urgent
Comment:
Reason For Exam: chest pain
07/24/24 11:59
Add On- LAB Urgent
Tests Added?: BNP
Abnormal Lab Results
07/24/24
09:56
Absolute Neuts (auto) 6.6 H 10^3/uL
(1.4-6.5)
Absolute Monos (auto) 0.9 H 10^3/uL
(0.1-0.6)
Lymphocytes % 15.1 L %
(20.5-51.1)
Monocytes % 10.4 H %
(1.7-9.3)
PT 16.5 H Sec
(11.4-14.6)
Glucose 109 H mg/dl
(70-99)
07/24/24 09:56
07/24/24 09:56
Vital Signs
Initial and Last Documented VS:
Initial Vital Signs
Temp Pulse Resp BP Pulse Ox
98.2 F 106 16 119/84 98
07/24/24 09:43 07/24/24 09:43 07/24/24 09:43 07/24/24 09:43 07/24/24 09:43
Last Documented Vital Signs
Temp Pulse Resp BP Pulse Ox
98.2 F 80 15 130/68 99
07/24/24 09:43 07/24/24 16:33 07/24/24 16:33 07/24/24 16:33 07/24/24 16:33
<MARCIO Carrero - Last Filed: 07/24/24 16:17>
MDM/Problems Addressed
MDM/Problems Addressed:
Received signout : patient was eval by cardiology Dr. Damon who does feel that this is reflux and recommends discharging patient on pantoprazole 40 mg daily. Pt stable for d/c home.
<MARCIO Carrero - Last Filed: 07/24/24 16:17>
*Critical Care Note
Total Time (30-74mins, 75-104mins- exclusive of procedures): Not Applicable
<Amaury Winston PA-C - Last Filed: 07/25/24 15:10>
Update Note
Update Note:
Limited bedside echocardiogram performed by myself shows no evidence for significant pericardial effusion
ED Attending Note
<Amaury Winston PA-C - Last Filed: 07/25/24 15:10>
-
Portions of this chart may have been created with voice recognition software.� Occasional wrong word or��sound alike� substitutions may have occurred due to the inherent limitations of voice recognition software.
Discharge Plan
Departure
Patient Disposition: Home (Routine Discharge)
Date of Disposition: 07/24/24
Time of Disposition: 16:13
Patient with high blood pressure during this ER visit?: No
Condition: Fair
Covid-19: Not Applicable
Discharge Problem:
Atypical chest pain, gerd
Instructions: Chest Pain That Is Not Caused by the Heart (DC), Acid reflux and GERD in adults
Prescriptions:
New
pantoprazole 40 mg tablet,delayed release (DR/EC)
40 mg PO DAILY Qty: 30 0RF
No Action
levothyroxine [Levoxyl] 100 MCG tablet
100 mcg PO Daily
therapeutic multivitamin Tablet
1 tab PO DAILY
metoprolol succinate [Toprol XL] 25 mg tablet extended release 24 hr
25 mg PO QPM
Eliquis 5 mg Tablet
10 mg PO BID Qty: 12 0RF
Eliquis 5 mg Tablet
5 mg PO BID Qty: 30 0RF
Referrals:
Juanpablo Mathis MD [Family Provider] -
Reno Wiseman MD [Active] - 10/12/24 1:20 pm
Santos Donald MD [Active] - 07/31/24 1:30 pm
Activity Restrictions/Additional Instructions:
As discussed a prescription for pantoprazole was sent to your pharmacy take as directed. Avoid spicy acidic foods, avoid caffeine chocolate alcohol. Follow-up closely with your family doctor in the next several days reevaluation. Follow-up with
cardiology as discussed.
Interventions
Interventions:
*Risk Screen - Suicide Last Done: 07/24/24 09:43
*Neglect/Abuse Screening Last Done: 07/24/24 09:43
*Nursing Disposition Last Done: 07/24/24 16:35
ED- Cardiac Assessment Last Done: 07/24/24 11:13
Discharge Date and Time
Discharge Date/Time: 07/24/24 16:35
Print Language: MONEGASQUE
[2024-07-24 16:33] VITALS: BP 130/68
== END 2024-07-24 16:35 | disposition home or self-care (01) ==
LOC: EMR 09:29
PROVIDERS: EMERGENCY PHYSICIAN Emergency Medicine; FAMILY PHYSICIAN Internal Medicine Geriatric Medicine; OTHER PHYSICIAN Internal Medicine Cardiovascular Disease
DX: K21.9 Gastro-esophageal reflux disease without esophagitis (principal); R07.89 Other chest pain; Z79.01 Long term (current) use of anticoagulants
CPT/HCPCS: 99285; 71046; 80053; 83880; 84484; 85025; 85610; 93005

== ENCOUNTER 2024-08-27 06:22 | Emergency (ER) | payer BC, SELFPAY ==
[2024-08-27 06:25] VITALS: BP 125/79
[2024-08-27 07:24] VITALS: BP 108/66
--- NOTE | 2024-08-27 08:01 | ED.GENMED ---
History of Present Illness
General
Chief Complaint: Bowel Problem
Source: patient
Exam Limitations: none
Time Seen by Provider: 08/27/24 07:44
History of Present Illness
History of Present Illness:
64-year-old female presents with 5 days worth of no bowel movement. She notes abdominal discomfort and slight distention. She also notes ongoing nausea. She is on Eliquis for history of pulmonary embolism. She had an excision of a meningioma in
the recent past. No vomiting. No fever. No prior abdominal surgical history. No other complaints
Past History
Past History
ED Past Medical History: Hypothyroidism and Other (COVID infection, SVT September 2022)
ED Past Surgical History: Orthopedic
Social History
Tobacco: Non-smoker
Alcohol: Occasional
Drug: None
Personal:
Living: with family
Employment: Employed
Family History
Family History: Other (Noncontributory)
Phy Exam
Physical Exam
Physical Exam:
General: Well-appearing female no acute respiratory distress
HEENT: Normocephalic atraumatic
Heart: Regular rate and rhythm
Lungs: Clear no wheeze
Abdomen soft mildly diffusely tender nondistended no guarding
Extremities: No cyanosis or edema
Course
Orders/Labs/Results
Orders:
Orders
08/27/24 07:57
CT Abd/pelvis W Iv Cont Urgent
Comment:
Reason For Exam: abdominal discomfort, constipation
08/27/24 08:02
Complete Blood Count/With Diff Urgent
Comprehensive Metabolic Panel Urgent
Lipase Urgent
Abnormal Lab Results
08/27/24
08:02
MCHC 32.8 L g/dL
(33.0-37.0)
Absolute Monos (auto) 0.8 H 10^3/uL
(0.1-0.6)
Lymphocytes % 18.3 L %
(20.5-51.1)
Monocytes % 10.8 H %
(1.7-9.3)
Chloride 109 H mmol/L
(98-107)
08/27/24 08:02
08/27/24 08:02
Vital Signs
Initial and Last Documented VS:
Initial Vital Signs
Temp Pulse Resp BP Pulse Ox
97.7 F 86 20 125/79 95
08/27/24 06:25 08/27/24 06:25 08/27/24 06:25 08/27/24 06:25 08/27/24 06:25
Last Documented Vital Signs
Temp Pulse Resp BP Pulse Ox
97.7 F 79 16 111/59 95
08/27/24 06:25 08/27/24 09:10 08/27/24 09:10 08/27/24 09:10 08/27/24 07:30
MDM/Problems Addressed
Differential Diagnosis Includes:
Abdominal discomfort and constipation. Question bowel obstruction versus constipation versus reflux
Labs pending CT ordered
*Critical Care Note
Total Time (30-74mins, 75-104mins- exclusive of procedures): Not Applicable
Update Note
Update Note:
Labs normal CT negative. Patient does not have an overwhelming stool burden. Would recommend stool softener such as MiraLAX to help her move her bowels. No indication for enema at this time. Stable for discharge
ED Attending Note
-
Portions of this chart may have been created with voice recognition software.� Occasional wrong word or��sound alike� substitutions may have occurred due to the inherent limitations of voice recognition software.
Discharge Plan
Departure
Patient Disposition: Home (Routine Discharge)
Date of Disposition: 08/27/24
Time of Disposition: 09:29
Patient with high blood pressure during this ER visit?: No
Discharge Problem:
Constipation
Instructions: Constipation, Adult (DC)
Prescriptions:
No Action
levothyroxine [Levoxyl] 100 MCG tablet
88 mcg PO Daily
therapeutic multivitamin Tablet
1 tab PO DAILY
metoprolol succinate [Toprol XL] 25 mg tablet extended release 24 hr
25 mg PO QPM
Eliquis 5 mg Tablet
5 mg PO BID Qty: 30 0RF
pantoprazole 40 mg tablet,delayed release (DR/EC)
40 mg PO DAILY Qty: 30 0RF
Referrals:
Man Menendez MD [Family Provider, Internal Medicine]
Activity Restrictions/Additional Instructions:
Use MiraLAX daily to help move your bowels. Return if worse otherwise follow-up with your doctor
Interventions
Interventions:
*Risk Screen - Suicide Last Done: 08/27/24 06:25
*General Assessment Last Done: 08/27/24 06:25
*Neglect/Abuse Screening Last Done: 08/27/24 06:25
*ED- Fall Risk Assessment Last Done: 08/27/24 07:26
*ED COVID-19 Vaccine History Last Done: 08/27/24 06:30
QD-Balfrw-Kkmdmazgzl Assessment Last Done: 08/27/24 07:21
Discharge Date and Time
Print Language: ARMENIAN
[2024-08-27 08:13] LABS: % Basophils 0.5 % (0-2); % Eosinophils 0.1 % (0-6); % Immature Granulocytes 0.1 % (0-0.5); % Lymphocytes 18.3 % (20.5-51.1); % Monocytes 10.8 % (1.7-9.3); % Neutrophils 70.2 % (42.2-75.2); Absolute Lymphocytes 1.3 10^3/uL (1.2-3.4); Absolute Monocytes 0.8 10^3/uL (0.1-0.6); Absolute Neutrophils 5.1 10^3/uL (1.4-6.5); Hematocrit 41.1 % (37.0-47.0); Hemoglobin 13.5 g/dL (12.0-16.0); Mean Corp Hgb Conc. 32.8 g/dL (33.0-37.0); Mean Corpuscular Hgb 28.5 pg (27.0-31.0); Mean Corpuscular Volume 86.9 fL (81.0-99.0); Mean Platelet Volume 9.3 fL (7.4-10.4); Nucleated Red Blood Cells % 0 %; Platelet Count 270 10^3/uL (130-400); Red Blood Cell Count 4.73 10^6/uL (4.20-5.40); Red Cell Dist. Width 14.5 % (11.5-14.5); White Blood Cell Count 7.3 10^3/uL (4.8-10.8)
[2024-08-27 08:33] LABS: ALT (SGPT) 25 U/L (0-35); AST (SGOT) 17 U/L (14-36); Albumin 3.7 g/dl (3.5-5.0); Alkaline Phosphatase 87 U/L (38-126); Blood Urea Nitrogen 16 mg/dl (7-17); Carbon Dioxide 26 mmol/L (22-30); Chloride 109 mmol/L (98-107); Glucose 98 mg/dl (70-99); Lipase 60 U/L (23-300); Potassium 4.2 mmol/L (3.5-5.1); Sodium 141 mmol/L (135-145); Total Bilirubin 0.7 mg/dl (0.2-1.3); Total Protein 6.3 g/dl (6.3-8.2); eGFR > 60.00
[2024-08-27 09:10] VITALS: BP 111/59
== END 2024-08-27 09:45 | disposition home or self-care (01) ==
LOC: EMR 06:22
PROVIDERS: Physician Assistant; EMERGENCY PHYSICIAN Emergency Medicine; FAMILY PHYSICIAN Internal Medicine
DX: K59.00 Constipation, unspecified (principal); Z79.01 Long term (current) use of anticoagulants; Z86.711 Personal history of pulmonary embolism
CPT/HCPCS: 99285; 74177; 80053; 83690; 85025; Q9967

== ENCOUNTER 2024-08-28 06:19 | Emergency (ER) | payer BC, SELFPAY ==
[2024-08-28 06:23] VITALS: BP 134/92
[2024-08-28 06:42] VITALS: BMI 45.9
--- NOTE | 2024-08-28 06:48 | ED.GENMED ---
History of Present Illness
General
Chief Complaint: Throat Problem
Source: patient
Exam Limitations: none
Time Seen by Provider: 08/28/24 06:30
Nursing documentation reviewed up to this point in time: agreed with
History of Present Illness
History of Present Illness:
64-year-old female past medical history of recent brain surgery for meningioma, GERD, previous PE currently on Eliquis presenting to the emergency department after taking her thyroid medication this morning and felt that the pill got stuck in her
throat. Some mild foreign body sensation but no pain no trouble swallowing or breathing
Past History
Past History
ED Past Medical History: Hypothyroidism and Other (COVID infection, SVT September 2022)
ED Past Surgical History: Orthopedic
Social History
Tobacco: Non-smoker
Alcohol: Occasional
Drug: None
Personal:
Living: with family
Employment: Employed
Family History
Family History: Other (Noncontributory)
Review of Systems
Review of Systems
Allergies reviewed?: Yes
All Other Systems: ROS reviewed and negative except as documented in HPI and ROS
Phy Exam
Physical Exam
Physical Exam:
GENERAL: Alert , in no apparent distress
EYE: pupils equal and reactive
NECK: Supple, no significant adenopathy.
ENT: o/p clr, mmm.
CARDIAC: Regular rate and rhythm .
LUNGS: Clear breath sounds bilaterally, no acute respiratory distress, no wheezes/rales/rhonchi
ABDOMEN: Soft, without focal tenderness, no r/g, no cvat
NEUROLOGICAL: Alert and oriented, no focal neuro deficits
SKIN: Warm and dry, skin intact.
MUSCULOSKELETAL: No edema, well perfused.
PSYCH: Normal and appropriate interaction.
Course
Orders/Labs/Results
Orders:
Orders
08/28/24 06:38
Neck Soft Tissue [CR Soft Tissue Neck ] Urgent
Comment:
Reason For Exam: neck pain
Vital Signs
Initial and Last Documented VS:
Initial Vital Signs
Temp Pulse Resp BP Pulse Ox
97.7 F 92 22 134/92 97
08/28/24 06:23 08/28/24 06:23 08/28/24 06:23 08/28/24 06:23 08/28/24 06:23
Last Documented Vital Signs
Temp Pulse Resp BP Pulse Ox
97.7 F 92 22 134/92 97
08/28/24 06:23 08/28/24 06:23 08/28/24 06:23 08/28/24 06:23 08/28/24 06:42
MDM/Problems Addressed
MDM/Problems Addressed:
64-year-old female presenting to the emergency department today with concerns of foreign body sensation to throat after taking her thyroid medication. No trouble swallowing or breathing lungs clear. X-ray without emergent findings. Patient
tolerating here symptoms resolved during ER stay after being observed for an hour or 2. Otherwise stable for discharge. Return precautions given.
*Critical Care Note
Total Time (30-74mins, 75-104mins- exclusive of procedures): Not Applicable
ED Attending Note
-
Portions of this chart may have been created with voice recognition software.� Occasional wrong word or��sound alike� substitutions may have occurred due to the inherent limitations of voice recognition software.
Discharge Plan
Departure
Patient Disposition: Home (Routine Discharge)
Date of Disposition: 08/28/24
Time of Disposition: 08:24
Patient with high blood pressure during this ER visit?: No
Condition: Good
Covid-19: Not Applicable
Discharge Problem:
Foreign body sensation, throat
Prescriptions:
No Action
levothyroxine [Levoxyl] 100 MCG tablet
88 mcg PO Daily
therapeutic multivitamin Tablet
1 tab PO DAILY
metoprolol succinate [Toprol XL] 25 mg tablet extended release 24 hr
25 mg PO QPM
Eliquis 5 mg Tablet
5 mg PO BID Qty: 30 0RF
pantoprazole 40 mg tablet,delayed release (DR/EC)
40 mg PO DAILY Qty: 30 0RF
Referrals:
Man Menendez MD [Family Provider, Internal Medicine]
Activity Restrictions/Additional Instructions:
You came to the emergency department today with concerns of foreign body sensation to throat. Here you had a reassuring assessment. Return for any worsening, new or concerning symptoms.
Interventions
Interventions:
*Risk Screen - Suicide Last Done: 08/28/24 06:23
*General Assessment Last Done: 08/28/24 06:42
*ED- Fall Risk Assessment Last Done: 08/28/24 06:42
*ED COVID-19 Vaccine History Last Done: 08/28/24 06:42
ED-EENT Assessment Last Done: 08/28/24 06:42
ED- Pulmonary Assessment Last Done: 08/28/24 06:42
Discharge Date and Time
Print Language: SWEDISH
[2024-08-28 09:00] VITALS: BP 122/74
== END 2024-08-28 09:18 | disposition home or self-care (01) ==
LOC: EMR 06:19
PROVIDERS: EMERGENCY PHYSICIAN Student in an Organized Health Care Education/Training Program; FAMILY PHYSICIAN Internal Medicine
DX: R09.A2 Foreign body sensation, throat (principal); K21.9 Gastro-esophageal reflux disease without esophagitis; D32.9 Benign neoplasm of meninges, unspecified; E03.9 Hypothyroidism, unspecified; Z79.01 Long term (current) use of anticoagulants; Z86.16 Personal history of COVID-19; Z86.711 Personal history of pulmonary embolism
CPT/HCPCS: 99283; 70360

== ENCOUNTER 2024-08-29 11:21 | Emergency (ER) | payer BC, SELFPAY ==
[2024-08-29 11:34] VITALS: BP 120/73
[2024-08-29 12:02] LABS: % Basophils 0.5 % (0-2); % Eosinophils 0.1 % (0-6); % Immature Granulocytes 0.4 % (0-0.5); % Lymphocytes 11.7 % (20.5-51.1); % Monocytes 7.4 % (1.7-9.3); % Neutrophils 79.9 % (42.2-75.2); Absolute Monocytes 0.6 10^3/uL (0.1-0.6); Absolute Neutrophils 6.6 10^3/uL (1.4-6.5); Hematocrit 42.2 % (37.0-47.0); Hemoglobin 14.2 g/dL (12.0-16.0); Mean Corp Hgb Conc. 33.6 g/dL (33.0-37.0); Mean Corpuscular Hgb 29.1 pg (27.0-31.0); Mean Corpuscular Volume 86.5 fL (81.0-99.0); Mean Platelet Volume 9.5 fL (7.4-10.4); Nucleated Red Blood Cells % 0 %; Platelet Count 296 10^3/uL (130-400); Red Blood Cell Count 4.88 10^6/uL (4.20-5.40); Red Cell Dist. Width 14.6 % (11.5-14.5); White Blood Cell Count 8.2 10^3/uL (4.8-10.8)
[2024-08-29 12:22] LABS: ALT (SGPT) 23 U/L (0-35); AST (SGOT) 17 U/L (14-36); Alkaline Phosphatase 92 U/L (38-126); Blood Urea Nitrogen 15 mg/dl (7-17); Carbon Dioxide 25 mmol/L (22-30); Chloride 109 mmol/L (98-107); Glucose 112 mg/dl (70-99); Potassium 4.1 mmol/L (3.5-5.1); Sodium 140 mmol/L (135-145); Total Bilirubin 0.5 mg/dl (0.2-1.3); Total Protein 6.7 g/dl (6.3-8.2); eGFR > 60.00
[2024-08-29 13:04] VITALS: BP 102/64
[2024-08-29 13:05] VITALS: BP 112/65
--- NOTE | 2024-08-29 13:30 | ED.GENMED ---
Addendum entered and electronically signed by Ramy Myers Jr., PA-C 08/31/24 14:23:
Patient had positive E. coli on urine culture. Sensitivities pending. Patient was contact on both of the listed phone numbers and messages were left for return phone call
Original Note:
History of Present Illness
General
Chief Complaint: Dizziness
Source: patient
Time Seen by Provider: 08/29/24 12:59
History of Present Illness
History of Present Illness:
This patient is a very pleasant 64-year-old female who states that approximately 8 weeks ago she had a meningioma removed. She did subsequently get diagnosed with small peripheral pulmonary emboli and is compliant with her anticoagulation. She
states that about 3 weeks ago she was diagnosed with a UTI, at that time without dysuria but complaining of cloudy urine with urinary frequency. She was first placed on Bactrim but did not tolerate that so was switched to Keflex and her symptoms
improved. Then, 2 weeks later, her symptoms recurred and she was again placed on antibiotics, this time Bactrim. She felt that her symptoms improved. Now, over the last day or 2, she again notes urinary frequency associated with cloudy urine.
She denies flank pain, nausea, vomiting, fever, chills, chest pain, shortness of breath, abdominal pain, vomiting, dysuria, urgency. She does have frequency. She denies blood in her urine or stool. Her bowel movements are normal. She denies any
other complaints. She called her primary care doctor spoke with the [employer] who in turn called in another antibiotic. However, she started to feel lightheaded, which prompted her visit here. She no longer feels lightheaded. She denies a sense of
spinning or movement, numbness, tingling, focal weakness, visual changes. She states that she did not eat much today and wonders if this contributed to her lightheadedness.
Past History
Past History
ED Past Medical History: Hypothyroidism and Other (COVID infection, SVT September 2022)
ED Past Surgical History: Orthopedic
Social History
Tobacco: Non-smoker
Alcohol: Occasional
Drug: None
Personal:
Living: with family
Employment: Employed
Family History
Family History: Other (Noncontributory)
Phy Exam
Physical Exam
Physical Exam:
GENERAL: Alert , in no apparent distress
EYE: pupils equal and reactive
NECK: Supple, no significant adenopathy.
ENT: o/p clr, mmm.
CARDIAC: Regular rate and rhythm .
LUNGS: Clear breath sounds bilaterally, no acute respiratory distress, no wheezes/rales/rhonchi
ABDOMEN: Soft, without focal tenderness, no r/g, no cvat
NEUROLOGICAL: Alert and oriented, no focal neuro deficits
SKIN: Warm and dry, skin intact.
MUSCULOSKELETAL: No edema, well perfused.
PSYCH: Normal and appropriate interaction.
Sepsis
Sepsis Screening
Sepsis Assessment: Sepsis Ruled Out
Sepsis Screen
Sepsis Screen: Sepsis Ruled Out
Date: 08/29/24
Time: 16:55
Course
Orders/Labs/Results
Orders:
Orders
08/29/24 11:23
EKG [Electrocardiogram (*1)] Urgent
Reason for Study: Vertigo / Dizzy
EKG- Treatment ONCE
08/29/24 11:49
Complete Blood Count/With Diff Urgent
Comprehensive Metabolic Panel Urgent
08/29/24 13:28
Urinalysis Reflex To Culture Urgent
Date Specimen was Collected: 08/29/24
Time Specimen was Collected: 13:24
Urine Microscopic Reflex Cult Urgent
Urine Culture Urgent
[facility] Source: U
Specimen Description:
Date Specimen was Collected: 08/29/24
Time Specimen was Collected: 13:24
08/29/24 16:05
Troponin I Urgent
Urine Culture Reflexed from UA [Urinalysis Reflex To Culture] Urgent
Date Specimen was Collected: 08/29/24
Time Specimen was Collected: 16:03
Urine Microscopic Reflex Cult Urgent
Urine Culture Urgent
[facility] Source: U
Specimen Description:
Date Specimen was Collected: 08/29/24
Time Specimen was Collected: 16:03
Abnormal Lab Results
08/29/24 08/29/24 08/29/24
11:49 13:28 16:05
RDW 14.6 H %
(11.5-14.5)
Absolute Neuts (auto) 6.6 H 10^3/uL
(1.4-6.5)
Absolute Lymphs (auto) 1.0 L 10^3/uL
(1.2-3.4)
Neutrophils % 79.9 H %
(42.2-75.2)
Lymphocytes % 11.7 L %
(20.5-51.1)
Chloride 109 H mmol/L
(98-107)
Glucose 112 H mg/dl
(70-99)
Urine Ketones 2+ A 3+ A
(Negative) (Negative)
Ur Occult Blood Reflex 1+ A
(Negative)
Urine Nitrite (Reflex) Positive A
(Negative)
Leukocyte Esterase Rfl 3+ A 3+ A
(Negative) (Negative)
Urine RBC 3-6 A /HPF
(0-2)
Urine WBC (Reflex) 26-30 A /HPF
(0-5)
Urine Bacteria (Reflex) Many A Many A
(Negative) (Negative)
08/29/24 11:49
08/29/24 11:49
Vital Signs
Initial and Last Documented VS:
Initial Vital Signs
Temp Pulse Resp BP Pulse Ox
98.1 F 92 22 120/73 99
08/29/24 11:34 08/29/24 11:34 08/29/24 11:34 08/29/24 11:34 08/29/24 11:34
Last Documented Vital Signs
Temp Pulse Resp BP Pulse Ox
98.1 F 90 20 112/78 98
08/29/24 11:34 08/29/24 16:19 08/29/24 16:19 08/29/24 16:19 08/29/24 16:19
*Critical Care Note
Total Time (30-74mins, 75-104mins- exclusive of procedures): Not Applicable
Update Note
Update Note:
Patient presents to the Emergency Department with cloudy urine, dizziness
Number and Complexity of Problems Addressed at the Encounter
� Chronic conditions affecting care:
� Acute Exacerbation and/or Progression of Chronic Illness:
� Differential Diagnosis includes: But not limited to UTI, dehydration, sepsis, electrolyte disorder, etc. etc.
Amount and/or Complexity of Data to be Reviewed and Analyzed
� I performed an independent evaluation of and my interpretation is:
EKG: Read by me, normal sinus rhythm, normal rate, nonspecific T wave abnormalities which are unchanged from prior, no acute ischemia noted
CT:
Xrays:
Laboratory Studies: Generally unremarkable, mild pyuria noted but not significant.
Other:
� Review of other/old records reveals: Discharge summary from June 2024 reviewed by me patient diagnosed with subsegmental PE
� Clinical information was obtained by an independent historian:
� Prescriptions/Medications Considered but not given:
� Further testing considered but not performed:
Risk of Complications and/or Morbidity or Mortality of Patient Management
� Social determinants of health affecting care:
� Discussion with other providers (PCP, Hospitalists, Consultants, etc):
� Escalation of care including admission/observation vs risk of discharge considered: 4:53 PM multiple reassessments patient overall extremely well-appearing and asymptomatic. I am concerned about her starting a third course of
antibiotics which have been called in by her nurse practitioner today. Her urine is not particularly convincing for a UTI particularly in the context of recent antibiotics. Recommend that she not start the antibiotics, and continue with her
scheduled appoint with her doctor on Saturday for reassessment. Discussed with her importance of follow-up and reasons return to the ER.
ED Attending Note
-
Portions of this chart may have been created with voice recognition software.� Occasional wrong word or��sound alike� substitutions may have occurred due to the inherent limitations of voice recognition software.
Discharge Plan
Departure
Patient Disposition: Home (Routine Discharge)
Date of Disposition: 08/29/24
Time of Disposition: 16:54
Patient with high blood pressure during this ER visit?: No
Condition: Good
Discharge Problem:
Dizziness
Instructions: Dizziness
Prescriptions:
No Action
levothyroxine [Levoxyl] 100 MCG tablet
88 mcg PO Daily
therapeutic multivitamin Tablet
1 tab PO DAILY
metoprolol succinate [Toprol XL] 25 mg tablet extended release 24 hr
25 mg PO QPM
Eliquis 5 mg Tablet
5 mg PO BID Qty: 30 0RF
pantoprazole 40 mg tablet,delayed release (DR/EC)
40 mg PO DAILY Qty: 30 0RF
Referrals:
Man Menendez MD [Family Provider, Internal Medicine]
Activity Restrictions/Additional Instructions:
PLEASE SEE YOUR DOCTOR DIRECTED/SCHEDULED ON SATURDAY. IF YOU DEVELOP FLANK PAIN, ABDOMINAL PAIN, FEVER, VOMITING, DIFFICULTY URINATING, CHEST PAIN, SHORTNESS OF BREATH, OR OTHER WORRISOME SIGNS, PLEASE RETURN TO THE ER IMMEDIATELY!
Interventions
Interventions:
*Risk Screen - Suicide Last Done: 08/29/24 11:34
*General Assessment Last Done: 08/29/24 11:34
*Neglect/Abuse Screening Last Done: 08/29/24 11:34
ED- Neurological Assessment Last Done: 08/29/24 13:32
ED- Cardiac Assessment Last Done: 08/29/24 13:32
ED Swallowing Screen Last Done: 08/29/24 13:32
Discharge Date and Time
Print Language: VINCENTIAN
[2024-08-29 14:00] VITALS: BP 115/78
[2024-08-29 14:20] LABS: Urine Albumin Negative (Neg - Trace); Urine Bilirubin Negative (Negative); Urine Character Clear (Clear); Urine Color Yellow; Urine Glucose Negative (Negative); Urine Ketone 2+ (Negative); Urine Leukocyte 3+ (Negative); Urine Nitrite Positive (Negative); Urine Occult Blood 1+ (Negative); Urine Specific Gravity 1.015 (<1.030); Urine Urobilinogen Negative (Neg - 1+)
[2024-08-29 14:40] LABS: Urine Squamous Cell 16-20 /LPF (Few)
[2024-08-29 14:42] LABS: Urine Bacteria Many (Negative); Urine White Cell 26-30 /HPF (0-5)
[2024-08-29 14:45] VITALS: BMI 43.3
[2024-08-29 16:19] VITALS: BP 112/78
[2024-08-29 16:21] LABS: Urine Albumin Negative (Neg - Trace); Urine Bilirubin Negative (Negative); Urine Character Clear (Clear); Urine Color Yellow; Urine Glucose Negative (Negative); Urine Ketone 3+ (Negative); Urine Leukocyte 3+ (Negative); Urine Nitrite Negative (Negative); Urine Occult Blood Negative (Negative); Urine Urobilinogen Negative (Neg - 1+)
[2024-08-29 16:43] LABS: Urine Bacteria Many (Negative); Urine Red Blood Cell 0-2 /HPF (0-2)
[2024-08-29 16:44] LABS: Troponin I < 0.012 ng/ml
--- NOTE | 2024-08-31 14:56 | ED.ADDNOTE ---
ED Addendum
ED Addendum
ED Addendum Note:
The patient's primary care doctor, Dr. Stephani Hall was contacted and will follow-up with the patient direct for potential antibiotic treatment of the positive urine culture.
== END 2024-08-29 17:38 | disposition home or self-care (01) ==
LOC: EMR 11:21
PROVIDERS: Emergency Medicine; EMERGENCY PHYSICIAN Emergency Medicine; FAMILY PHYSICIAN Internal Medicine
DX: R42 Dizziness and giddiness (principal); R35.0 Frequency of micturition; E03.9 Hypothyroidism, unspecified; I47.10 Supraventricular tachycardia, unspecified; Z79.01 Long term (current) use of anticoagulants; Z86.16 Personal history of COVID-19; Z87.440 Personal history of urinary (tract) infections; Z86.711 Personal history of pulmonary embolism; Z88.8 Allergy status to other drugs, medicaments and biological substances
CPT/HCPCS: 99283; 80053; 81003; 81015; 84484; 85025; 87077; 87086; 87186; 93005

== ENCOUNTER → 2024-09-02 15:08 | Outpatient (REF) | payer BC, SELFPAY | LOC: DHSLP 15:08 | PROVIDERS: ATTENDING PHYSICIAN Internal Medicine Critical Care Medicine; FAMILY PHYSICIAN Internal Medicine Geriatric Medicine | DX: G47.33 Obstructive sleep apnea (adult) (pediatric) (principal); R09.02 Hypoxemia | CPT/HCPCS: 95800 ==

== ENCOUNTER → 2024-09-17 09:02 | Outpatient (REF) | payer BC, SELFPAY | LOC: RAD 09:02 | PROVIDERS: ATTENDING PHYSICIAN Nurse Practitioner; FAMILY PHYSICIAN Internal Medicine | DX: N39.0 Urinary tract infection, site not specified (principal) | CPT/HCPCS: 76770; 76856 ==

== ENCOUNTER → 2024-09-22 06:47 | Outpatient (REF) | payer BC, SELFPAY ==
[2024-09-24 06:49] LABS: Beta-2-Glycoprotein I Ab. IgG <10 SGU (<=20); Beta-2-Glycoprotein I Ab. IgM <10 SMU (<=20)
== END ==
LOC: REG 06:47
PROVIDERS: ATTENDING PHYSICIAN Internal Medicine Endocrinology, Diabetes & Metabolism; FAMILY PHYSICIAN Internal Medicine Hematology & Oncology
DX: E03.9 Hypothyroidism, unspecified (principal); I26.99 Other pulmonary embolism without acute cor pulmonale
CPT/HCPCS: 36415; 81240; 81241; 84443; 86146; 86147

== ENCOUNTER → 2024-10-06 16:21 | Outpatient (REF) | payer BC, SELFPAY | LOC: RAD 16:21 | PROVIDERS: ATTENDING PHYSICIAN Internal Medicine Critical Care Medicine; FAMILY PHYSICIAN Internal Medicine; OTHER PHYSICIAN Internal Medicine Cardiovascular Disease; REFERRING PHYSICIAN Internal Medicine Hematology & Oncology | DX: I26.99 Other pulmonary embolism without acute cor pulmonale (principal) | CPT/HCPCS: 71275; Q9967 ==

== ENCOUNTER → 2024-10-08 07:27 | Outpatient (REF) | payer BC, SELFPAY | LOC: PAVMRI 07:27 | PROVIDERS: ATTENDING PHYSICIAN Nurse Practitioner; FAMILY PHYSICIAN Internal Medicine Geriatric Medicine; REFERRING PHYSICIAN Neurological Surgery | DX: G93.89 Other specified disorders of brain (principal) | CPT/HCPCS: 70553; A9575 ==

== ENCOUNTER → 2024-10-21 08:48 | Outpatient (REF) | payer BC, SELFPAY ==
[2024-10-21 10:05] LABS: D-Dimer 0.42 ug/mlFEU (0.00-0.50)
== END ==
LOC: REG 08:48
PROVIDERS: ATTENDING PHYSICIAN Internal Medicine Hematology & Oncology; FAMILY PHYSICIAN Internal Medicine; OTHER PHYSICIAN Internal Medicine Critical Care Medicine; REFERRING PHYSICIAN Internal Medicine Cardiovascular Disease
DX: I26.99 Other pulmonary embolism without acute cor pulmonale (principal)
CPT/HCPCS: 36415; 85379

== ENCOUNTER → 2024-11-06 13:25 | Outpatient (REF) | payer BC, SELFPAY | LOC: REG 13:25 | PROVIDERS: ATTENDING PHYSICIAN Internal Medicine Hematology & Oncology; FAMILY PHYSICIAN Internal Medicine; REFERRING PHYSICIAN Internal Medicine Critical Care Medicine | DX: I26.99 Other pulmonary embolism without acute cor pulmonale (principal) | CPT/HCPCS: 36415; 85300; 85305; 85610; 85613; 85730 ==

== ENCOUNTER → 2024-12-01 10:26 | Outpatient (REF) | payer BC, SELFPAY | LOC: REG 10:26 | PROVIDERS: ATTENDING PHYSICIAN Internal Medicine Endocrinology, Diabetes & Metabolism; FAMILY PHYSICIAN Internal Medicine; OTHER PHYSICIAN Internal Medicine Critical Care Medicine | DX: E03.9 Hypothyroidism, unspecified (principal) | CPT/HCPCS: 36415; 84443 ==

== ENCOUNTER → 2024-12-11 13:02 | Outpatient (REF) | payer BC, SELFPAY | LOC: WDC 13:02 | PROVIDERS: ATTENDING PHYSICIAN Obstetrics & Gynecology Gynecology; FAMILY PHYSICIAN Internal Medicine | DX: Z12.31 Encounter for screening mammogram for malignant neoplasm of breast (principal) | CPT/HCPCS: 77063; 77067 ==

== ENCOUNTER → 2025-01-07 07:46 | Outpatient (REF) | payer BC, SELFPAY ==
[2025-01-07 11:14] LABS: Cortisol, Random 10.8 ug/dl; TSH 2.59 uIU/ml (0.47-4.68)
== END ==
LOC: REG 07:46
PROVIDERS: ATTENDING PHYSICIAN Internal Medicine Endocrinology, Diabetes & Metabolism; FAMILY PHYSICIAN Internal Medicine; REFERRING PHYSICIAN Internal Medicine Critical Care Medicine
DX: E03.9 Hypothyroidism, unspecified (principal)
CPT/HCPCS: 36415; 82533; 84439; 84443